=== PATIENT | male | born 1940 | race Caucasian/White ===

== ENCOUNTER → 2017-10-05 08:29 | Outpatient (CLI) | payer MEDICARE, OTHER, SELFPAY ==
[2017-10-05 09:27] LABS: BUN Creatinine Ratio 18.8 (6-22); Blood Urea Nitrogen 15 mg/dL (9-20); Calcium 8.8 mg/dL (8.4-10.2); Carbon Dioxide 27 mmol/L (22-32); Chloride 102 mmol/L (98-107); Cholesterol 115 mg/dL (140-199); Estimated Glomerular Filt Rate > 60.0 mL/min (>60); Glucose 98 mg/dL (80-110); HDL Cholesterol 36 mg/dL (40-60); HEMOLYSIS < 15 (0-50); LDL Cholesterol Calculated 52 mg/dL (<100); Potassium 4.2 mmol/L (3.4-5.1); Sodium 141 mmol/L (137-145); Triglycerides 133 mg/dL (35-150)
== END ==
PROVIDERS: PCP Family Medicine; Visit Provider Internal Medicine Interventional Cardiology
DX: I10 Essential (primary) hypertension (principal); E78.5 Hyperlipidemia, unspecified
CPT/HCPCS: 36415; 80048; 80061

== ENCOUNTER → 2017-10-25 08:29 | Outpatient (CLI) | payer MEDICARE, OTHER, SELFPAY ==
[2017-10-25 09:33] LABS: INR 4.1 (0.9-1.3); Prothrombin Time 44.1 SECONDS (10.1-12.7)
== END ==
PROVIDERS: PCP Family Medicine; Visit Provider Family Medicine
DX: I48.0 Paroxysmal atrial fibrillation (principal)
CPT/HCPCS: 36415; 85610

== ENCOUNTER → 2017-10-28 08:40 | Outpatient (CLI) | payer MEDICARE, OTHER, SELFPAY ==
[2017-10-28 09:33] LABS: INR 2.2 (0.9-1.3); Prothrombin Time 23.8 SECONDS (10.1-12.7)
== END ==
PROVIDERS: PCP Family Medicine; Visit Provider Family Medicine
DX: I48.0 Paroxysmal atrial fibrillation (principal)
CPT/HCPCS: 36415; 85610

== ENCOUNTER → 2017-12-15 10:03 | Outpatient (CLI) | payer MEDICARE, OTHER, SELFPAY ==
[2017-12-15 11:12] LABS: INR 2.1 (0.9-1.3); Prothrombin Time 23.1 SECONDS (10.1-12.7)
== END ==
PROVIDERS: PCP Family Medicine; Visit Provider Family Medicine
DX: I48.0 Paroxysmal atrial fibrillation (principal)
CPT/HCPCS: 36415; 85610

== ENCOUNTER → 2018-01-13 08:11 | Outpatient (CLI) | payer MEDICARE, OTHER, SELFPAY ==
[2018-01-13 08:39] LABS: INR 1.7 (0.9-1.3); Prothrombin Time 18.1 SECONDS (10.1-12.7)
== END ==
PROVIDERS: PCP Family Medicine; Visit Provider Family Medicine
DX: I48.0 Paroxysmal atrial fibrillation (principal)
CPT/HCPCS: 36415; 85610

== ENCOUNTER → 2018-03-16 08:43 | Outpatient (CLI) | payer MEDICARE, OTHER, SELFPAY ==
[2018-03-16 10:30] LABS: Prothrombin Time 21.6 SECONDS (10.1-12.7)
== END ==
PROVIDERS: PCP Family Medicine; Visit Provider Family Medicine
DX: I48.0 Paroxysmal atrial fibrillation (principal)
CPT/HCPCS: 36415; 85610

== ENCOUNTER → 2018-04-21 08:52 | Outpatient (CLI) | payer MEDICARE, OTHER, SELFPAY ==
[2018-04-21 10:11] LABS: INR 2.9 (0.9-1.3); Prothrombin Time 34.6 SECONDS (10.1-12.7)
== END ==
PROVIDERS: PCP Family Medicine; Visit Provider Family Medicine
DX: I48.0 Paroxysmal atrial fibrillation (principal)
CPT/HCPCS: 36415; 85610

== ENCOUNTER → 2018-05-22 10:04 | Outpatient (CLI) | payer MEDICARE, OTHER, SELFPAY ==
[2018-05-22 10:57] LABS: INR 2.4 (0.9-1.3)
== END ==
PROVIDERS: PCP Family Medicine; Visit Provider Family Medicine
DX: I48.0 Paroxysmal atrial fibrillation (principal)
CPT/HCPCS: 36415; 85610

== ENCOUNTER → 2018-06-27 08:21 | Outpatient (CLI) | payer MEDICARE, OTHER, SELFPAY ==
[2018-06-27 09:31] LABS: INR 1.9 (0.9-1.3); Prothrombin Time 22.6 SECONDS (10.1-12.7)
== END ==
PROVIDERS: PCP Family Medicine; Visit Provider Family Medicine
DX: I48.0 Paroxysmal atrial fibrillation (principal)
CPT/HCPCS: 36415; 85610

== ENCOUNTER → 2018-07-19 07:50 | Outpatient (CLI) | payer MEDICARE, OTHER, SELFPAY ==
[2018-07-19 08:48] LABS: INR 2.8 (0.9-1.3); Prothrombin Time 32.6 SECONDS (10.1-12.7)
[2018-07-19 08:52] LABS: Add Manual Diff / Slide Review NO; Basophils Absolute Auto 0 /uL (0-100); Basophils Percent Auto 0.7 % (0-2); Eosinophils Absolute Auto 300 /uL (0-450); Eosinophils Percent Auto 5.4 % (2-4); Hematocrit 46.9 % (41-53); Lymphocytes Absolute Auto 1300 /uL (1100-4500); Lymphocytes Percent Auto 21.8 % (25-40); Mean Corpuscular HGB Conc 34.1 % (30-36); Mean Corpuscular Hemoglobin 32.2 PG (26-34); Mean Corpuscular Volume 94.3 fL (80-100); Monocytes Absolute Auto 500 /uL (0-900); Monocytes Percent Auto 8.2 % (3-14); Neutrophils Absolute Auto 3900 /uL (1500-7000); Neutrophils Percent Auto 63.9 % (50-75); Platelet Count 145 X10^3/uL (150-400); Red Blood Cell Count 4.97 X10^6/uL (4.5-5.9); Red Cell Distribution Width 13.3 % (11.6-14.8)
[2018-07-19 09:17] LABS: Alanine Aminotransferase 25 IU/L (21-72); Albumin Globulin Ratio 1.7 (1.0-2.8); Alkaline Phosphatase 78 U/L (38-126); Aspartate Aminotransferase 19 IU/L (17-59); BUN Creatinine Ratio 21.1 (6-22); Bilirubin Total 0.8 mg/dL (0.2-1.3); Blood Urea Nitrogen 19 mg/dL (9-20); Calcium 8.6 mg/dL (8.4-10.2); Carbon Dioxide 26 mmol/L (22-32); Chloride 105 mmol/L (98-107); Cholesterol 119 mg/dL (140-199); Estimated Glomerular Filt Rate > 60.0 mL/min (>60); Globulin 2.4 g/dL (1.7-4.1); Glucose 97 mg/dL (80-110); HDL Cholesterol 36 mg/dL (40-60); HEMOLYSIS < 15 (0-50); LDL Cholesterol Calculated 53 mg/dL (<100); Potassium 4.1 mmol/L (3.4-5.1); Sodium 141 mmol/L (137-145); Total Protein 6.4 g/dL (6.3-8.2); Triglycerides 149 mg/dL (35-150)
[2018-07-19 09:50] LABS: Prostate Specific Antigen Scrn < 0.064 ng/mL (0.1-4.0)
== END ==
PROVIDERS: PCP Family Medicine; Visit Provider Family Medicine
DX: I48.0 Paroxysmal atrial fibrillation (principal); I25.10 Atherosclerotic heart disease of native coronary artery without angina pectoris; E78.5 Hyperlipidemia, unspecified; C61 Malignant neoplasm of prostate; F52.21 Male erectile disorder; Z79.899 Other long term (current) drug therapy
CPT/HCPCS: 36415; 80053; 80061; 85025; 85610; G0103

== ENCOUNTER → 2018-08-31 08:59 | Outpatient (CLI) | payer MEDICARE, OTHER, SELFPAY ==
[2018-08-31 10:26] LABS: INR 3.3 (0.9-1.3); Prothrombin Time 39.7 SECONDS (10.1-12.7)
== END ==
PROVIDERS: PCP Family Medicine; Visit Provider Family Medicine
DX: I48.0 Paroxysmal atrial fibrillation (principal)
CPT/HCPCS: 36415; 85610

== ENCOUNTER → 2018-10-27 08:29 | Outpatient (CLI) | payer MEDICARE, OTHER, SELFPAY ==
[2018-10-27 09:46] LABS: INR 2.5 (0.9-1.3); Prothrombin Time 29.6 SECONDS (10.1-12.7)
== END ==
PROVIDERS: PCP Family Medicine; Visit Provider Family Medicine
DX: I48.0 Paroxysmal atrial fibrillation (principal)
CPT/HCPCS: 36415; 85610

== ENCOUNTER → 2018-11-27 08:58 | Outpatient (CLI) | payer MEDICARE, OTHER, SELFPAY ==
[2018-11-27 09:48] LABS: INR 3.1 (0.9-1.3); Prothrombin Time 36.1 SECONDS (10.1-12.7)
== END ==
PROVIDERS: PCP Family Medicine; Visit Provider Family Medicine
DX: I48.0 Paroxysmal atrial fibrillation (principal)
CPT/HCPCS: 36415; 85610

== ENCOUNTER → 2018-12-20 10:32 | Outpatient (CLI) | payer MEDICARE, OTHER, SELFPAY ==
[2018-12-20 11:42] LABS: INR 2.5 (0.9-1.3); Prothrombin Time 29.4 SECONDS (10.1-12.7)
== END ==
PROVIDERS: PCP Family Medicine; Visit Provider Family Medicine
DX: I48.0 Paroxysmal atrial fibrillation (principal)
CPT/HCPCS: 36415; 85610

== ENCOUNTER → 2019-01-04 07:47 | Outpatient (CLI) | payer MEDICARE, OTHER, SELFPAY ==
[2019-01-04 09:38] LABS: INR 3.2 (0.9-1.3); Prothrombin Time 37.4 SECONDS (10.1-12.7)
== END ==
PROVIDERS: PCP Family Medicine; Visit Provider Family Medicine
DX: I48.0 Paroxysmal atrial fibrillation (principal)
CPT/HCPCS: 36415; 85610

== ENCOUNTER → 2019-02-12 08:43 | Outpatient (CLI) | payer MEDICARE, OTHER, SELFPAY ==
[2019-02-12 09:25] LABS: INR 2.4 (0.9-1.3); Prothrombin Time 28.1 SECONDS (10.1-12.7)
== END ==
PROVIDERS: PCP Family Medicine; Visit Provider Family Medicine
DX: I48.0 Paroxysmal atrial fibrillation (principal)
CPT/HCPCS: 36415; 85610

== ENCOUNTER → 2019-03-23 08:13 | Outpatient (CLI) | payer MEDICARE, OTHER, SELFPAY ==
[2019-03-23 09:12] LABS: INR 1.6 (0.9-1.3); Prothrombin Time 18.5 SECONDS (10.1-12.7)
== END ==
PROVIDERS: PCP Family Medicine; Visit Provider Family Medicine
DX: I48.0 Paroxysmal atrial fibrillation (principal)
CPT/HCPCS: 36415; 85610

== ENCOUNTER → 2019-04-11 08:58 | Outpatient (CLI) | payer MEDICARE, OTHER, SELFPAY ==
[2019-04-11 10:45] LABS: INR 2.4 (0.9-1.3); Prothrombin Time 28.6 SECONDS (10.1-12.7)
== END ==
PROVIDERS: PCP Family Medicine; Visit Provider Family Medicine
DX: I48.0 Paroxysmal atrial fibrillation (principal)
CPT/HCPCS: 36415; 85610

== ENCOUNTER → 2019-05-24 09:34 | Outpatient (CLI) | payer MEDICARE, OTHER, SELFPAY ==
[2019-05-24 10:09] LABS: INR 2.8 (0.9-1.3); Prothrombin Time 32.6 SECONDS (10.1-12.7)
== END ==
PROVIDERS: PCP Family Medicine; Visit Provider Family Medicine
DX: I48.0 Paroxysmal atrial fibrillation (principal)
CPT/HCPCS: 36415; 85610

== ENCOUNTER 2019-06-07 06:22 | Day surgery (SDC) | payer MEDICARE, OTHER, SELFPAY ==
[2019-06-07] MEDS: PROPARACAINE 0.5% OPHTH SOL 2 DROPS EYE-OP (07:07)
[2019-06-07] MEDS: CATARACT EYE COMPOUND (10 DROPS/SYRINGE) 3 DROPS EYE-OP (07:12)
[2019-06-07 07:14] VITALS: BMI 28.7
[2019-06-07 07:25] VITALS: BP 148/90; PULSE 60; RESP 16; TEMP 36.6; O2SAT 93
--- NOTE | 2019-06-07 07:29 | PM.PREOP ---
Pre-operative Note Interval Note History & Physical reviewed/Exam performed by Physician: Yes Changes to H&P: No
[2019-06-07] MEDS: BALANCED SALT IRRIG SOLN NO.2 15 ML 5 ML IRR (07:45)
[2019-06-07] MEDS: CHONDROIDTIN/SOD HYALURONATE 1.05 ML SYRINGE INTRAOCULA (07:51)
[2019-06-07] MEDS: TETRACAINE 0.5% OPHTH DROPS 4 ML 2 DROPS EYE-OP (07:51)
[2019-06-07] MEDS: PHENYLEPHRINE/LIDOCAINE VIAL (OR) 0.2 ML EYE-OP (07:52)
[2019-06-07] MEDS: BALANCED SALT IRRIG SOLN NO.2 500 ML, EPINEPHrine 1 MG IRR (07:52)
[2019-06-07] MEDS: MOXIFLOXACIN INJ 5 MG/ML VIAL EYE-OP (07:53)
[2019-06-07] MEDS: LIDOCAINE 2% INJ SDV 2 ML INJ (07:53)
--- NOTE | 2019-06-07 08:17 | PM.OP.1 ---
Procedure & Clinicians Procedure: Cataract extraction with intraocular lens implant, right. Same procedure as scheduled: Yes Indications: Age related visually significant nuclear sclerosis, right Surgeon: Azeem Chavez Click Yes if Unassisted: Yes Anesthesia Type: MAC +/- Operative Notes Procedure in detail: The patient was brought to the operating suite. The correct patient, surgical site and lens were confirmed. 0.5 % tetracaine drops were placed in the right eye. The patient was prepped and draped in the typical sterile manner. A lid speculum was placed in the eye. 2% lidocaine was placed on the eye. A paracentesis port was created with a side-port blade. 0.1 mL of 1% preservative free lidocaine with phenylephrine was injected into the anterior chamber. Viscoelastic was injected into the anterior chamber. A 2.6mm keratome was used to create a clear corneal temporal incision. Cystotome and Utrata forceps were used to create a continuous curvilinear capsulorrhexis. Balanced salt solution was used to hydrodissect the nucleus. Phacoemulsification was used to remove the lens. During Phacoemulsification the superior conjunctiva began to balloon. A second paracentesis port was created one clock hour left of the original paracentesis. The capsular bag was inflated with viscoelastic. A Pal[place]ios ZCBOO +23.0D lens was inserted into the capsule. Viscoelastic was removed and the wounds hydrated, and the main wound was sealed with ReSure glue. The wound was found to be leak free and the eye was assessed to be at normal physiologic pressure. 0.1mL Moxifloxacin (5mg/mL) preservative free was injected into the anterior chamber. The lid speculum was removed and the patient left the operating room in excellent condition. Complications: none Post-operative Condition: stable Disposition: same day surgery
[2019-06-07 08:25] VITALS: BP 130/81; PULSE 60; RESP 16; TEMP 36.6; O2SAT 93
== END 2019-06-07 08:30 | disposition home or self-care (01) ==
LOC: OR 06:24
PROVIDERS: PCP Family Medicine; Referring Provider Ophthalmology; Visit Provider Ophthalmology
PROC: (CPT 66984; principal; 2019-06-07 07:45)
DX: H25.11 Age-related nuclear cataract, right eye (principal); H35.3112 Nonexudative age-related macular degeneration, right eye, intermediate dry stage
CPT/HCPCS: 66984; J0171; J2250; J3010

== ENCOUNTER → 2019-06-19 08:50 | Outpatient (CLI) | payer MEDICARE, OTHER, SELFPAY ==
[2019-06-19 09:41] LABS: INR 1.8 (0.9-1.3); Prothrombin Time 20.2 SECONDS (10.1-12.7)
== END ==
PROVIDERS: PCP Family Medicine; Referring Provider Family Medicine; Visit Provider Family Medicine
DX: I48.0 Paroxysmal atrial fibrillation (principal)
CPT/HCPCS: 36415; 85610

== ENCOUNTER 2019-06-21 06:53 | Day surgery (SDC) | payer MEDICARE, OTHER, SELFPAY ==
[2019-06-21] MEDS: CATARACT EYE COMPOUND (10 DROPS/SYRINGE) 3 DROPS EYE-OP (07:54)
[2019-06-21] MEDS: PROPARACAINE 0.5% OPHTH SOL 2 DROPS EYE-OP (07:54)
[2019-06-21 07:57] VITALS: BP 154/82; PULSE 60; RESP 17; TEMP 36.5; O2SAT 97; BMI 29.0
--- NOTE | 2019-06-21 08:21 | PM.PREOP ---
Pre-operative Note Interval Note History & Physical reviewed/Exam performed by Physician: Yes Changes to H&P: No
[2019-06-21] MEDS: LIDOCAINE 2% INJ SDV 2 ML INJ (08:48)
[2019-06-21] MEDS: MOXIFLOXACIN INJ 5 MG/ML VIAL EYE-OP (08:48)
[2019-06-21] MEDS: BALANCED SALT IRRIG SOLN NO.2 500 ML, EPINEPHrine 1 MG IRR (08:49)
[2019-06-21] MEDS: TETRACAINE 0.5% OPHTH DROPS 4 ML 2 DROPS EYE-OP (08:49)
[2019-06-21] MEDS: CHONDROIDTIN/SOD HYALURONATE 1.05 ML SYRINGE INTRAOCULA (08:49)
[2019-06-21] MEDS: PHENYLEPHRINE/LIDOCAINE VIAL (OR) 0.2 ML EYE-OP (08:49)
[2019-06-21] MEDS: BALANCED SALT IRRIG SOLN NO.2 15 ML 5 ML IRR (08:50)
--- NOTE | 2019-06-21 09:10 | P.OP_ITS ---
Procedure & Clinicians Procedure: Cataract extraction with intraocular lens implant, left. Same procedure as scheduled: Yes Indications: Visually significant age related nuclear sclerosis, left Surgeon: Azeem Chavez Click Yes if Unassisted: Yes Anesthesia Type: MAC +/- Operative Notes Procedure in detail: The patient was brought to the operating suite. The correct patient, surgical site and lens were confirmed. 0.5 % tetracaine drops were placed in the left eye. The patient was prepped and draped in the typical kasey rile manner. A lid speculum was placed in the eye. 2% lidocaine was placed on the eye. A paracentesis port was created with a side-port blade. 0.1 mL of 1% preservative free lidocaine with phenylephrine was injected into the anterior chamber. Viscoelastic was injected into the anterior chamber. A 2.6mm keratome was used to create a clear corneal temporal incision. Cystotome and Utrata forceps were used to create a continuous curvilinear capsulorrhexis. Balanced salt solution was used to hydrodissect the nucleus. Phacoemulsification was used to remove the lens. The capsular bag was inflated with viscoelastic. A Palacios ZCBOO +22.5D lens was inserted into the capsule. Viscoelastic was removed and the wound hydrated. The wound was found to be leak free and the eye was assessed to be at normal physiologic pressure. 0.1mL Moxifloxacin (5mg/mL) preservative free was injected into the anterior chamber. The lid speculum was removed and the patient left the operating room in excellent condition. Complications: none Post-operative Condition: stable Disposition: same day surgery
[2019-06-21 09:16] VITALS: BP 125/81; PULSE 60; RESP 18; TEMP 36.4; O2SAT 94
[2019-06-21 09:30] VITALS: BP 125/81; BP 127/81; PULSE 59; PULSE 60; RESP 16; RESP 18; TEMP 36.4; O2SAT 93; O2SAT 94
== END 2019-06-21 09:30 | disposition home or self-care (01) ==
LOC: OR 06:54
PROVIDERS: PCP Family Medicine; Referring Provider Ophthalmology; Visit Provider Ophthalmology
PROC: (CPT 66984; principal; 2019-06-21 08:15)
DX: H25.12 Age-related nuclear cataract, left eye (principal)
CPT/HCPCS: 66984; J0171; J2250; J3010

== ENCOUNTER → 2019-07-18 12:28 | Outpatient (CLI) | payer MEDICARE, OTHER, SELFPAY ==
[2019-07-18 13:57] LABS: INR 1.9 (0.9-1.3); Prothrombin Time 21.6 SECONDS (10.1-12.7)
== END ==
PROVIDERS: PCP Family Medicine; Referring Provider Family Medicine; Visit Provider Family Medicine
DX: I48.0 Paroxysmal atrial fibrillation (principal)
CPT/HCPCS: 36415; 85610

== ENCOUNTER → 2019-08-10 12:18 | Outpatient (CLI) | payer MEDICARE, OTHER, SELFPAY ==
[2019-08-10 12:49] LABS: Prothrombin Time 23.3 SECONDS (10.1-12.7)
== END ==
PROVIDERS: PCP Family Medicine; Referring Provider Family Medicine; Visit Provider Family Medicine
DX: I48.0 Paroxysmal atrial fibrillation (principal)
CPT/HCPCS: 36415; 85610

== ENCOUNTER → 2019-09-07 09:02 | Outpatient (CLI) | payer MEDICARE, OTHER, SELFPAY ==
[2019-09-07 11:28] LABS: INR 3.7 (0.9-1.3); Prothrombin Time 42.3 SECONDS (10.1-12.7)
== END ==
PROVIDERS: PCP Family Medicine; Referring Provider Family Medicine; Visit Provider Family Medicine
DX: I48.0 Paroxysmal atrial fibrillation (principal)
CPT/HCPCS: 36415; 85610

== ENCOUNTER → 2019-10-11 08:23 | Outpatient (CLI) | payer MEDICARE, OTHER, SELFPAY ==
[2019-10-11 09:22] LABS: INR 2.3 (0.9-1.3); Prothrombin Time 26.4 SECONDS (10.1-12.7)
== END ==
PROVIDERS: PCP Family Medicine; Referring Provider Family Medicine; Visit Provider Family Medicine
DX: I48.0 Paroxysmal atrial fibrillation (principal)
CPT/HCPCS: 36415; 85610

== ENCOUNTER → 2019-10-31 09:18 | Outpatient (CLI) | payer MEDICARE, OTHER, SELFPAY ==
[2019-10-31 11:19] LABS: INR 2.4 (0.9-1.3)
== END ==
PROVIDERS: PCP Family Medicine; Referring Provider Family Medicine; Visit Provider Family Medicine
DX: I48.0 Paroxysmal atrial fibrillation (principal)
CPT/HCPCS: 36415; 85610

== ENCOUNTER → 2019-11-06 08:52 | Outpatient (CLI) | payer MEDICARE, OTHER, SELFPAY ==
[2019-11-06 09:48] LABS: Alanine Aminotransferase 16 IU/L (<50); BUN Creatinine Ratio 22.7 (6-22); Blood Urea Nitrogen 20 mg/dL (9-20); Calcium 9.3 mg/dL (8.4-10.2); Carbon Dioxide 24 mmol/L (22-32); Chloride 106 mmol/L (98-107); Cholesterol 113 mg/dL (140-199); Estimated Glomerular Filt Rate > 60.0 mL/min (>60); Glucose 103 mg/dL (80-110); HDL Cholesterol 34 mg/dL (40-60); HEMOLYSIS < 15 (0-50); LDL Cholesterol Calculated 52 mg/dL (<100); Potassium 4.2 mmol/L (3.4-5.1); Sodium 138 mmol/L (137-145); Triglycerides 137 mg/dL (35-150)
== END ==
PROVIDERS: PCP Family Medicine; Referring Provider Internal Medicine Interventional Cardiology; Visit Provider Internal Medicine Interventional Cardiology
DX: I25.2 Old myocardial infarction (principal)
CPT/HCPCS: 36415; 80048; 80061; 84460

== ENCOUNTER → 2020-01-21 08:05 | Outpatient (CLI) | payer MEDICARE, OTHER, SELFPAY ==
[2020-01-21 08:50] LABS: INR 2.6 (0.9-1.3); Prothrombin Time 29.9 SECONDS (10.1-12.7)
== END ==
PROVIDERS: PCP Family Medicine; Referring Provider Family Medicine; Visit Provider Family Medicine
DX: I48.0 Paroxysmal atrial fibrillation (principal)
CPT/HCPCS: 36415; 85610

== ENCOUNTER → 2020-02-27 16:03 | Outpatient (CLI) | payer MEDICARE, OTHER, SELFPAY ==
--- NOTE | 2020-02-27 | DI.RAD.S_ITS ---
PROCEDURE: XR WRIST LT MIN 3V INDICATIONS: M25. 532 TECHNIQUE: Four views of the wrist were acquired. COMPARISON: None. FINDINGS: Bones: Four views of the left wrist were performed and demonstrate degenerative changes with joint space narrowing and subchondral sclerosis of the triscaphe joint and the 1st carpometacarpal joint. Calcifications are seen in the triangular fibrocartilage consistent with chondrocalcinosis. No fracture or dislocation. Soft tissues: No suspicious soft tissue calcifications. IMPRESSION: 1. Degenerative changes of the triscaphe joint and 1st carpometacarpal joint consistent with osteoarthritis. 2. Chondrocalcinosis. Dictated by: Felix Gonzales M.D. on 02/27/2020 at 17:32 Approved by: Felix Gonzales M.D. on 02/27/2020 at 17:35
== END ==
PROVIDERS: PCP Family Medicine; Referring Provider Family Medicine; Visit Provider Family Medicine
DX: M25.532 Pain in left wrist (principal); M11.232 Other chondrocalcinosis, left wrist
CPT/HCPCS: 73110

== ENCOUNTER → 2020-02-29 08:34 | Outpatient (CLI) | payer MEDICARE, OTHER, SELFPAY ==
[2020-02-29 10:00] LABS: INR 2.8 (0.9-1.3); Prothrombin Time 31.9 SECONDS (10.1-12.7)
== END ==
PROVIDERS: PCP Family Medicine; Referring Provider Family Medicine; Visit Provider Family Medicine
DX: I48.0 Paroxysmal atrial fibrillation (principal)
CPT/HCPCS: 36415; 85610

== ENCOUNTER → 2020-03-25 07:22 | Outpatient (CLI) | payer MEDICARE, OTHER, SELFPAY ==
[2020-03-25 07:43] LABS: INR 2.5 (0.9-1.3); Prothrombin Time 28.7 SECONDS (10.1-12.7)
== END ==
PROVIDERS: PCP Family Medicine; Referring Provider Family Medicine; Visit Provider Family Medicine
DX: I48.0 Paroxysmal atrial fibrillation (principal)
CPT/HCPCS: 36415; 85610

== ENCOUNTER → 2020-04-21 08:16 | Outpatient (CLI) | payer MEDICARE, OTHER, SELFPAY ==
[2020-04-21 09:31] LABS: INR 2.3 (0.9-1.3); Prothrombin Time 26.8 SECONDS (10.1-12.7)
== END ==
PROVIDERS: PCP Family Medicine; Referring Provider Family Medicine; Visit Provider Family Medicine
DX: I48.0 Paroxysmal atrial fibrillation (principal)
CPT/HCPCS: 36415; 85610

== ENCOUNTER → 2020-05-10 10:19 | Outpatient (CLI) | payer MEDICARE, OTHER, SELFPAY ==
[2020-05-10 11:06] LABS: COVID19 -Nasal RAPID Negative (Negative)
== END ==
PROVIDERS: PCP Family Medicine; Visit Provider Nurse Practitioner
DX: Z01.812 Encounter for preprocedural laboratory examination (principal); Z20.822 Contact with and (suspected) exposure to COVID-19
CPT/HCPCS: 87635; C9803

== ENCOUNTER 2020-05-13 08:51 | Day surgery (SDC) | payer MEDICARE, OTHER, SELFPAY ==
[2020-05-13 10:22] VITALS: BP 125/80; PULSE 60; RESP 16; TEMP 36; O2SAT 95; BMI 27.9
--- NOTE | 2020-05-13 10:29 | P.OP_ITS ---
Operative Date/Time/Diagnoses Date of procedure: 05/13/20 Pre-op diagnosis: Dermatochalasis both upper eyelids Post-op diagnosis: same Procedure & Clinicians Procedure: Blepharoplasty both upper lids Same procedure as scheduled: Yes Surgeon: Mingo Steiner Anesthesia Type: MAC +/- Operative Notes Blood products transfused: none Procedure in detail: The patient was brought to the operating suite. A marking pen and calipers was used to kelly the excess upper lid skin of both eyes. The patient underwent intravenous sedation. A mixture of lidocaine with epinephrine, bupivicane and hyaluronidase was preppared. 5 ml of this mixture was injected into the upper lids of both eyes. The patient was preppred and draped in sterile manor. The excess skin and orbicularis mucscle was removed from the right upper lid. The orbital septum was excised and the prolapsed orbi tam fat was excised. There was minimal bleeding. The incision was closed with 6-0 vicryl suture. The same proceedure was performed on the left upper lid. Maxitrol ointment was placed on the incisions. The patient left the operating suite in excellent condition. Complications: none Post-operative Condition: stable Disposition: PACU
--- NOTE | 2020-05-13 10:29 | PM.PREOP ---
Pre-operative Note Interval Note History & Physical reviewed/Exam performed by Physician: Yes Changes to H&P: No
[2020-05-13] MEDS: LACTATED RINGERS 1,000 ML 42 ML IV (10:34)
[2020-05-13] MEDS: BUPIVACAINE 0.5% (PF) 5 ML, LIDOCAINE 1% W/EPI 5 ML, HYALURONIDASE 150 UNIT INJ (11:04)
[2020-05-13] MEDS: NEOMYCIN/POLY/DEX OPHTH OINT 1 APPLIC EYE-BOTH (11:04)
[2020-05-13 11:35] VITALS: BP 122/75; PULSE 60; RESP 16; TEMP 36; O2SAT 95
--- NOTE | 2020-05-13 12:01 | SUR.PHASEII ---
Pt met discharge criteria: VSS, denied any pain or nausea, able to drink fluids without difficulty. Slight oozing of blood from bilateral wounds. Discharge instructions discussed, all questions answered. Pt given ointment to take home for application to wounds per physician instructions. Transported via W/C to private vehicle.
== END 2020-05-13 11:52 | disposition home or self-care (01) ==
PROVIDERS: PCP Family Medicine; Referring Provider Ophthalmology; Visit Provider Ophthalmology
PROC: (CPT 15823; principal; 2020-05-13 10:45)
DX: H02.831 Dermatochalasis of right upper eyelid (principal); H02.834 Dermatochalasis of left upper eyelid; Z95.0 Presence of cardiac pacemaker; I48.91 Unspecified atrial fibrillation; I25.10 Atherosclerotic heart disease of native coronary artery without angina pectoris; I10 Essential (primary) hypertension; J44.9 Chronic obstructive pulmonary disease, unspecified; I25.2 Old myocardial infarction
CPT/HCPCS: 15823; J2704; J3470

== ENCOUNTER → 2020-06-11 09:00 | Outpatient (CLI) | payer MEDICARE, OTHER, SELFPAY ==
[2020-06-11 10:02] LABS: INR 2.6 (0.9-1.3); Prothrombin Time 29.3 SECONDS (10.1-12.7)
== END ==
PROVIDERS: PCP Family Medicine; Referring Provider Family Medicine; Visit Provider Family Medicine
DX: I48.0 Paroxysmal atrial fibrillation (principal)
CPT/HCPCS: 36415; 85610

== ENCOUNTER → 2020-06-25 08:47 | Outpatient (CLI) | payer MEDICARE, OTHER, SELFPAY ==
[2020-06-25 09:57] LABS: INR 2.6 (0.9-1.3); Prothrombin Time 29.9 SECONDS (10.1-12.7)
== END ==
PROVIDERS: PCP Family Medicine; Referring Provider Family Medicine; Visit Provider Family Medicine
DX: I48.0 Paroxysmal atrial fibrillation (principal)
CPT/HCPCS: 36415; 85610

== ENCOUNTER → 2020-07-25 08:02 | Outpatient (CLI) | payer MEDICARE, OTHER, SELFPAY ==
[2020-07-25 09:41] LABS: INR 2.5 (0.9-1.3); Prothrombin Time 27.9 SECONDS (10.1-12.7)
== END ==
PROVIDERS: PCP Family Medicine; Referring Provider Family Medicine; Visit Provider Family Medicine
DX: I48.0 Paroxysmal atrial fibrillation (principal)
CPT/HCPCS: 36415; 85610

== ENCOUNTER → 2020-08-07 09:33 | Outpatient (CLI) | payer MEDICARE, OTHER, SELFPAY ==
[2020-08-07 10:33] LABS: COVID19 -Nasal RAPID Negative (Negative)
== END ==
PROVIDERS: PCP Family Medicine; Visit Provider Specialist
DX: Z20.822 Contact with and (suspected) exposure to COVID-19 (principal)
CPT/HCPCS: 87635; C9803

== ENCOUNTER 2020-08-08 09:38 | Day surgery (SDC) | payer MEDICARE, OTHER, SELFPAY ==
--- NOTE | 2020-08-08 | PATH_ITS ---
[facility] Accession Number: [id number] . 01 Material submitted: . PART A: colon - COLON POLYP @40CM PART B: colon - ASCENDING COLON POLYP X3 PART C: colon - COLON POLYP @20CM X5 . 02 Diagnosis: A. Colon, Polyp at 40 cm, Biopsy: Tubular adenoma. . B. Ascending Colon, Polyp x3, Biopsy: Fragments of tubular adenoma and sessile serrated adenoma. . C. Colon, Polyp at 20 cm x5, Biopsies: Hyperplastic polyps. [facility] 08/12/2020 1538 Local . 02 Electronically signed: . Judy Ortega MD, Pathologist NPI- [id number] . 01 Gross description: . A. Received in formalin, labeled colon polyp at 40 cm biopsy, are multiple fragments of smith, soft tissue and possible debris measuring 1.5 x 0.4 x 0.3 cm in aggregate. One larger piece of tissue is observed measuring 0.5 x 0.3 x 0.4 cm. The aggregate material is entirely submitted in cassette A1. The larger piece of tissue is inked, trisected, and entirely submitted in cassette A2. B. Received in formalin, labeled ascending colon polyp, are three fragments of smith, soft tissue measuring 0.7 x 0.3 x 0.1 cm to 0.4 x 0.2 x 0.2 cm. All three fragments are entirely submitted in cassette B1. C. Received in formalin, labeled colon biopsy at 20 cm, are multiple fragments of smith, soft tissue measuring 1.1 x 0.8 x 0.3 cm in aggregate. All tissue is entirely submitted in cassette C1. ([id number]) /[facility] 08/09/2020 1415 Local . 02 Pathologist provided ICD-10: D12.2, D12.6 . 02 CPT . 569626, 557307, [id number] Performed at: 01 [facility] [address] [id number] MD Luis Means MD Phone: [phone] Performed at: 02 [facility] [address] [place], [place] [id number] MD Judy Ortega MD Phone: [phone]
[2020-08-08 10:07] VITALS: BP 140/90; PULSE 75; RESP 16; TEMP 36.2; O2SAT 93; BMI 26.8
[2020-08-08] MEDS: LACTATED RINGERS 1,000 ML 200 ML IV (10:07)
--- NOTE | 2020-08-08 10:31 | PM.PREOP ---
Pre-operative Note COVID-19 COVID-19 status: Negative Result date/Date tested (Pos, Neg/Pending): 08/07/20 Interval Note History & Physical reviewed/Exam performed by Physician: Yes Changes to H&P: No ASA Class (for procedural sedation): III
[2020-08-08] MEDS: MIDAZOLAM 5 MG/5 ML VIAL IV (10:36)
[2020-08-08] MEDS: fentaNYL 250 MCG/5 ML INJ IV (10:36)
[2020-08-08 11:19] VITALS: BMI 26.8
--- NOTE | 2020-08-08 11:23 | PM.OP.ENDO ---
Operative Date/Time/Diagnoses Date of procedure: 08/08/20 Time of procedure: 11:23 Pre-op diagnosis: Positive Cologuard test Post-op diagnosis: same (Multiple polyps. Diverticulosis.) Procedure & Clinicians Study performed: Colonoscopy with hot snare polypectomy and cold biopsy. Same procedure as scheduled: Yes Indications: Positive Cologuard test. Last exam over 10 years ago. Personal history of polyps. Surgeon: Chucho Warren Procedure Notes SCOAP/Timeout: Performed Procedure in detail: The patient was placed in the left lateral decubitus position and underwent IV sedation directed by the surgeon consisting of fentanyl and Versed. Digital exam was remarkable for an absent prostate. Patient had a tag it his anus.. The scope was inserted and advanced through the rectum into the sigmoid, descending, transverse, and ascending colon. Patient was noted to have some tortuosity in the sigmoid and diverticulosis. There was a lesion seen on the way in which was biopsied to marked so they could be snared on the way out.(this lesion on the way out measured at 40 cm from the anal verge). The cecum was reached identified by the ileocecal valve and the appendiceal opening. The ileocecal valve was unremarkable in appearance. There were 2 polyps in the ascending colon just beyond the cecum and these were snared with a hot snare. One had some small areas remaining which I cauterized and they were completely destroyed. The scope was gradually brought out. Additional Polyps were found at 40 cm from the anal verge and in the rectal area at about 15-20 cm there were multiple small lesions which were biopsied. Some of these may not be neoplastic. The region of the sigmoid was actually difficult to see because the patient did not hold air well well oil was in that area and so it was difficult to adequately distend it. The scope ultimately was retroflexed in the rectum. The appearance was normal. The scope was removed and the patient tolerated the procedure well. The prep was good. Scope withdrawal time: 10 minutes(23 total) Sedation minutes: 45 Findings: diverticulosis (Sigmoid colon) and polyp (Multiple) Specimen(s): other (Polyps) Complications: none Post-procedure Recommendations: Other recommendation (Colonoscopy in 3-5 years.) Follow up: as needed Disposition: PACU
[2020-08-08 11:26] VITALS: BP 126/78; PULSE 60; RESP 14; TEMP 37.1; O2SAT 92
[2020-08-08 11:30] VITALS: BP 119/70; PULSE 57; RESP 13; O2SAT 96
[2020-08-08 11:35] VITALS: BP 119/70; PULSE 57; RESP 12; O2SAT 93
[2020-08-08 11:39] VITALS: BP 128/71; PULSE 60; RESP 14; TEMP 36.7; O2SAT 96
== END 2020-08-08 12:11 | disposition home or self-care (01) ==
PROVIDERS: PCP Family Medicine; Referring Provider Specialist; Visit Provider Specialist
PROC: 0DJD8ZZ Inspection of Lower Intestinal Tract, Via Natural or Artificial Opening Endoscopic (ICD-10-PCS; CPT 45378; principal; 2020-08-08 10:45)
DX: R19.5 Other fecal abnormalities (principal); K57.30 Diverticulosis of large intestine without perforation or abscess without bleeding; D12.6 Benign neoplasm of colon, unspecified; D12.2 Benign neoplasm of ascending colon; I48.91 Unspecified atrial fibrillation; Z79.01 Long term (current) use of anticoagulants; K52.9 Noninfective gastroenteritis and colitis, unspecified; Z95.0 Presence of cardiac pacemaker; I25.2 Old myocardial infarction
CPT/HCPCS: 45385; 45380; 85610; 99152; 99153; J2250; J3010

== ENCOUNTER → 2020-09-04 08:06 | Outpatient (CLI) | payer MEDICARE, OTHER, SELFPAY ==
[2020-09-04 09:03] LABS: INR 3.5 (0.9-1.3); Prothrombin Time 40.7 SECONDS (10.1-12.7)
== END ==
PROVIDERS: PCP Family Medicine; Referring Provider Family Medicine; Visit Provider Family Medicine
DX: I48.0 Paroxysmal atrial fibrillation (principal)
CPT/HCPCS: 36415; 85610

== ENCOUNTER → 2020-09-18 08:55 | Outpatient (CLI) | payer MEDICARE, OTHER, SELFPAY ==
[2020-09-18 09:36] LABS: INR 2.1 (0.9-1.3); Prothrombin Time 23.3 SECONDS (10.1-12.7)
== END ==
PROVIDERS: PCP Family Medicine; Referring Provider Family Medicine; Visit Provider Family Medicine
DX: I48.0 Paroxysmal atrial fibrillation (principal)
CPT/HCPCS: 36415; 85610

== ENCOUNTER → 2020-10-27 09:04 | Outpatient (CLI) | payer MEDICARE, OTHER, SELFPAY ==
[2020-10-27 10:56] LABS: INR 2.1 (0.9-1.3); Prothrombin Time 24.1 SECONDS (10.1-12.7)
== END ==
PROVIDERS: PCP Family Medicine; Referring Provider Family Medicine; Visit Provider Family Medicine
DX: I48.0 Paroxysmal atrial fibrillation (principal)
CPT/HCPCS: 36415; 85610

== ENCOUNTER → 2020-11-21 07:35 | Outpatient (CLI) | payer MEDICARE, OTHER, SELFPAY ==
[2020-11-21 08:42] LABS: INR 3.4 (0.9-1.3)
== END ==
PROVIDERS: PCP Family Medicine; Referring Provider Family Medicine; Visit Provider Family Medicine
DX: I48.0 Paroxysmal atrial fibrillation (principal)
CPT/HCPCS: 36415; 85610

== ENCOUNTER → 2020-12-30 07:59 | Outpatient (CLI) | payer MEDICARE, OTHER, SELFPAY ==
[2020-12-30 10:05] LABS: INR 2.9 (0.9-1.3); Prothrombin Time 33.9 SECONDS (10.1-12.7)
== END ==
PROVIDERS: PCP Family Medicine; Referring Provider Family Medicine; Visit Provider Family Medicine
DX: I48.0 Paroxysmal atrial fibrillation (principal)
CPT/HCPCS: 36415; 85610

== ENCOUNTER → 2021-01-07 08:39 | Outpatient (CLI) | payer MEDICARE, OTHER, SELFPAY ==
[2021-01-07 11:16] LABS: BUN Creatinine Ratio 18.9 (6-22); Blood Urea Nitrogen 14 mg/dL (9-20); Calcium 8.8 mg/dL (8.4-10.2); Carbon Dioxide 28 mmol/L (22-32); Chloride 104 mmol/L (98-107); Cholesterol 95 mg/dL (140-199); Estimated Glomerular Filt Rate > 60.0 mL/min (>60); Glucose 100 mg/dL (80-110); HDL Cholesterol 35 mg/dL (40-60); HEMOLYSIS < 15 (0-50); LDL Cholesterol Calculated 42 mg/dL (<100); Potassium 4.2 mmol/L (3.4-5.1); Sodium 139 mmol/L (137-145); Triglycerides 88 mg/dL (35-150)
== END ==
PROVIDERS: PCP Family Medicine; Referring Provider Internal Medicine Interventional Cardiology; Visit Provider Internal Medicine Interventional Cardiology
DX: E78.5 Hyperlipidemia, unspecified (principal)
CPT/HCPCS: 36415; 80048; 80061

== ENCOUNTER → 2021-02-24 07:56 | Outpatient (CLI) | payer MEDICARE, OTHER, SELFPAY | PROVIDERS: PCP Family Medicine; Referring Provider Family Medicine; Visit Provider Family Medicine | DX: I48.0 Paroxysmal atrial fibrillation (principal) | CPT/HCPCS: 36415; 85610 ==

== ENCOUNTER → 2021-04-02 07:47 | Outpatient (CLI) | payer MEDICARE, OTHER, SELFPAY ==
[2021-04-02 08:13] LABS: INR 2.5 (0.9-1.3); Prothrombin Time 29.1 SECONDS (10.1-12.7)
== END ==
PROVIDERS: PCP Family Medicine; Referring Provider Family Medicine; Visit Provider Family Medicine
DX: I48.0 Paroxysmal atrial fibrillation (principal)
CPT/HCPCS: 36415; 85610

== ENCOUNTER → 2021-05-21 08:27 | Outpatient (CLI) | payer MEDICARE, OTHER, SELFPAY ==
[2021-05-21 10:05] LABS: INR 2.3 (0.9-1.3); Prothrombin Time 26.5 SECONDS (10.1-12.7)
== END ==
PROVIDERS: PCP Family Medicine; Referring Provider Family Medicine; Visit Provider Family Medicine
DX: I48.0 Paroxysmal atrial fibrillation (principal)
CPT/HCPCS: 36415; 85610

== ENCOUNTER → 2021-06-11 17:41 | Outpatient (CLI) | payer MEDICARE, OTHER, SELFPAY | PROVIDERS: PCP Family Medicine; Referring Provider Family Medicine; Visit Provider Family Medicine | DX: R42 Dizziness and giddiness (principal); I10 Essential (primary) hypertension; I48.0 Paroxysmal atrial fibrillation ==

== ENCOUNTER → 2021-06-16 10:39 | Outpatient (CLI) | payer MEDICARE, OTHER, SELFPAY ==
--- NOTE | 2021-06-16 11:12 | DI.CT.S_ITS ---
PROCEDURE: CT ANGIO HEAD AND NECK INDICATIONS: DIZZINESS AND GIDDINESS TECHNIQUE: Pre-contrast 4.5 mm thick sections acquired from the foramen magnum to the vertex. After the administration of intravenous contrast, 1 mm thick sections acquired from the aortic arch through the Hughes of [place]. Post-contrast 4.5 mm thick sections then re-acquired from the foramen magnum to the vertex. 3-dimensional nhrqawi-vftpmpecd-cijhqchasd (MIP) and/or volume rendering reformats were acquired of the central intracranial vasculature and neck separately. COMPARISON: None. FINDINGS: Image quality: Excellent. BRAIN: Moderate global cerebral volume loss and mild chronic microvascular ischemic change. No acute intracranial hemorrhage, abnormal extra-axial fluid collection, mass effect, or midline shift. The ventricular system and basilar cisterns are patent. Bal-white matter differentiation is maintained, without CT evidence of acute large territory infarct. No gross orbital abnormality other than intra-ocular lens replacements. Clear paranasal sinuses and mastoid air cells. Regional osseous structures intact. HEAD CT ANGIOGRAPHY: Anterior circulation: Intracranial internal carotid arteries are normal in size and flow. The flow within the paired anterior cerebral arteries is normal and symmetric. The flow within the middle cerebral arteries is normal and symmetric. The anterior communicating artery is seen. No aneurysms are seen. Posterior circulation: Visualized portions of the vertebral arteries demonstrate normal caliber, and join to form a normal appearing basilar artery. Flow within the posterior cerebral arteries is normal and symmetric. No aneurysms are seen. NECK CT ANGIOGRAPHY: Carotid system: The great vessels demonstrate a conventional anatomy as they arise from the aortic arch. The origins of the common carotid arteries appear patent. The common carotid arteries demonstrate normal caliber and courses. The bifurcation regions are both widely patent. The internal carotid arteries demonstrate normal calibers and courses. Posterior circulation: The origins of the vertebral arteries both appear widely patent. The more superior extracranial portions of both vertebral arteries also demonstrate normal courses and calibers. They join to form a normal appearing basilar artery. Soft tissues: Visualized neck soft tissues demonstrate no suspicious abnormalities. Bones: No suspicious bony lesions. Visualized cervical spine appears normally aligned. IMPRESSION: No hemodynamically significant narrowing of the major intracranial or extracranial arterial vasculature. Mild atherosclerotic change at the origins of the carotid and vertebral arteries, at the carotid bifurcations, and in the carotid siphons. No acute intracranial abnormality. Mild global cerebral volume loss and chronic microvascular ischemic change. Any quantitative measurements of stenosis were performed using NASCET criteria. Dictated by: Yaya Miranda M.D. on 06/16/2021 at 14:01 Approved by: Yaya Miranda M.D. on 06/16/2021 at 14:08
== END ==
PROVIDERS: PCP Family Medicine; Referring Provider Family Medicine; Visit Provider Family Medicine
DX: I48.0 Paroxysmal atrial fibrillation (principal); R42 Dizziness and giddiness; I10 Essential (primary) hypertension
CPT/HCPCS: 70496; 70498

== ENCOUNTER → 2021-06-25 09:46 | Outpatient (CLI) | payer MEDICARE, OTHER, SELFPAY ==
--- NOTE | 2021-07-16 16:52 | PM.CARDMON.1 ---
Compensation And Benefits Analyst Report Referral & Results Date Patient Seen: 06/25/21 Requesting provider: Satya Harrington Indication: Paroxysmal atrial fibrillation Duration of monitoring (days): 14 Diary information: There were 8 patient triggered events and 9 patient diary entries All of these patient events were associated variably with (within 45 seconds) atrial fibrillation and ventricular ectopy Data: Minimum heart rate identified was 57 beats per minute at 18:20 on 07/26/2021 Maximum heart rate was 184 beats per minute at 15:11 on 07/08/2021 during a run of ventricular tachycardia Patient was continuously in atrial fibrillation with heart rate between 60 and 130 beats per minute Less than 1% of identified beats were ventricular ectopic in origin There were 3 runs of ventricular tachycardia the longest lasting 7 beats at a rate of 117 beats per minute which upon review of the strip looks like complex multifocal VT Impression: Continuous atrial fibrillation with above rate range Rare runs of nonsustained polymorphic ventricular tachycardia as above Clinical correlation suggested
== END ==
PROVIDERS: PCP Family Medicine; Referring Provider Family Medicine; Visit Provider Family Medicine
DX: I48.0 Paroxysmal atrial fibrillation (principal)
CPT/HCPCS: 93246; 93248

== ENCOUNTER → 2021-07-01 07:42 | Outpatient (CLI) | payer MEDICARE, OTHER, SELFPAY ==
[2021-07-01 08:25] LABS: INR 2.7 (0.9-1.3)
== END ==
PROVIDERS: PCP Family Medicine; Referring Provider Family Medicine; Visit Provider Family Medicine
DX: I48.0 Paroxysmal atrial fibrillation (principal)
CPT/HCPCS: 36415; 85610

== ENCOUNTER → 2021-07-10 10:36 | Outpatient (CLI) | payer MEDICARE, OTHER, SELFPAY ==
--- NOTE | 2021-07-10 | DI.RAD.S_ITS ---
PROCEDURE: XR CHEST 2V INDICATIONS: CHRONIC COUGH TECHNIQUE: 2 views of the chest were acquired. COMPARISON: [facility], , CHEST 2 VIEW, 08/04/2017, 13:54. FINDINGS: Surgical changes and devices: Single lead left-sided pacemaker. Lungs and pleura: Chronic mild coarsening of the interstitial markings diffusely. No dense consolidations, effusion, or pneumothorax. Mediastinum: Normal mediastinal contour. Mild, chronic prominence of central pulmonary arteries. No central venous congestion. Mild cardiomegaly. Bones and chest wall: No suspicious bony abnormalities. Soft tissues appear unremarkable. IMPRESSION: 1. Mild cardiomegaly and diffuse interstitial thickening may be secondary to chronic edema. 2. Central pulmonary artery prominence raises the possibility of pulmonary artery hypertension. 3. No acute process. Dictated by: Luzma Real M.D. on 07/10/2021 at 13:24 Approved by: Luzma Real M.D. on 07/10/2021 at 13:27
== END ==
PROVIDERS: PCP Family Medicine; Referring Provider Family Medicine; Visit Provider Family Medicine
DX: I51.7 Cardiomegaly (principal); R05.3 Chronic cough
CPT/HCPCS: 71046

== ENCOUNTER → 2021-08-04 10:00 | Outpatient (CLI) | payer MEDICARE, OTHER, SELFPAY ==
[2021-08-04 13:00] LABS: INR 2.8 (0.9-1.3)
== END ==
PROVIDERS: PCP Family Medicine; Referring Provider Family Medicine; Visit Provider Family Medicine
DX: I48.0 Paroxysmal atrial fibrillation (principal)
CPT/HCPCS: 36415; 85610

== ENCOUNTER → 2021-09-10 07:45 | Outpatient (CLI) | payer MEDICARE, OTHER, SELFPAY ==
[2021-09-10 10:48] LABS: Prothrombin Time 34.8 SECONDS (10.1-12.7)
== END ==
PROVIDERS: PCP Family Medicine; Referring Provider Family Medicine; Visit Provider Family Medicine
DX: I48.0 Paroxysmal atrial fibrillation (principal)
CPT/HCPCS: 36415; 85610

== ENCOUNTER → 2021-10-07 07:48 | Outpatient (CLI) | payer MEDICARE, OTHER, SELFPAY ==
[2021-10-07 09:04] LABS: INR 3.7 (0.9-1.3); Prothrombin Time 42.9 SECONDS (10.1-12.7)
== END ==
PROVIDERS: PCP Family Medicine; Referring Provider Family Medicine; Visit Provider Family Medicine
DX: I48.0 Paroxysmal atrial fibrillation (principal)
CPT/HCPCS: 36415; 85610

== ENCOUNTER → 2021-10-15 07:50 | Outpatient (CLI) | payer MEDICARE, OTHER, SELFPAY ==
--- NOTE | 2021-10-15 | DI.ECHO.S_ITS ---
[place] [facility]---------[facility] +---------+ : : [address] : : : : [id number] : : : : Phone: [phone] Echocardiogram Report + + :Name: DREW FERMIN Study Date: 10/15/2021 Height: 70 in : :[facility] ReadingLocation: Weight: 190 lb : : Gender: Male BSA: 2.0 m2 : :: 1940 Age: 81 yrs BP: 159/89 mmHg: :Reason For Study: ATRIAL FIBRILLATION : :Ordering Physician: MARCELINO, : :CESAR Performed By: Lauren Overton : :Referring: CESAR BENSON : + + Interpretation Summary Mild concentric left ventricular hypertrophy with ejection fraction 55-60%. Mild to moderately dilated right ventricle with mildly reduced right ventricular systolic function. There is a pacemaker lead in the right ventricle. Severe biatrial enlargement. Mild aortic valve sclerosis. Mild to moderate mitral regurgitation. Moderate tricuspid regurgitation. The right ventricular systolic pressure is estimated to be at least 63 mmHg based on an estimated right atrial pressure of 8 mm Hg. Comparison is made with the echocardiogram of 01/01/2020, LV wall thickness has increased and pulmonary pressure has increased. Procedure: A two-dimensional transthoracic echocardiogram with color flow and Doppler was performed. The study quality was technically adequate. Comparison is made with the echocardiogram of 01/01/2020. The patient has a paced rhythm. The heart rate ranged between 59-63 bpm during the study. Left Ventricle: The left ventricle is normal in size. There is mild concentric left ventricular hypertrophy. The ejection fraction is estimated to be 55-60%. Septal motion is consistent with conduction abnormality. There are no other obvious focal wall motion abnormalities. Diastolic function could not be accurately assessed due to paced rhythm. Right Ventricle: There is a pacemaker lead in the right ventricle. The right ventricle is mild to moderately dilated. Right ventricular systolic function is mildly reduced. Atria: There is severe biatrial enlargement. There is no Doppler evidence for an interatrial shunt. Mitral Valve: The mitral valve leaflets appear mildly thickened, but open well. There is a flat closure plane of the the mitral valve leaflets. There is mild to moderate mitral regurgitation. Aortic Valve: The aortic valve is trileaflet. The aortic valve opens well. There is mild aortic valve sclerosis. There is no aortic valve stenosis. No aortic regurgitation is present. Tricuspid Valve: The tricuspid valve is normal in structure and function. There is moderate tricuspid regurgitation. The right ventricular systolic pressure is estimated to be at least 63 mmHg based on an estimated right atrial pressure of 8 mm Hg. Pulmonic Valve: The pulmonic valve leaflets are thin and pliable; valve motion is normal. There is trace pulmonic regurgitation. Great Vessels: The aortic root is normal size. The dimensions of the ascending aorta are normal. The IVC is dilated (diameter is greater than 2.1 cm) yet it collapses greater than 50% with a sniff. This suggests a right atrial pressure of 8 mm Hg. Pericardium/ Pleura There is no pericardial effusion. There is no pleural effusion. MMode/2D Measurements & Calculations LVIDd: 4.6 cm LVOT diam: 2.2 cm LVIDs: 3.3 cm Ao root diam: 3.3 cm FS: 29.4 % asc Aorta Diam: 3.4 cm IVSd: 1.3 cm Ao Arch Diam (Prox Trans): 2.7 cm LVPWd: 1.1 cm LV pena. diameter/BSA (cm/m^2): 2.3 LV sys. diameter/BSA (cm/m^2): 1.6 LA A2 area: 35.3 cm2 RA long axis: 7.2 cm LA A4 area: 35.5 cm2 RA area: 29.5 cm2 LA length (vol): 7.2 cm RA vol: 103.3 ml LA vol: 146.9 ml RA : 50.6 ml/m2 LA vol index: 71.9 ml/m2 IVC diam: 2.2 cm RVD1 (basal): 4.6 cm RVD2 (mid): 4.0 cm TAPSE: 1.4 cm Doppler Measurements & Calculations Ao V2 max: 192.9 cm/sec LVOT Max Juan: 75.2 cm/sec Ao V2 mean: 124.7 cm/sec LV V1 max P.3 mmHg Ao max P.9 mmHg LV V1 VTI: 13.5 cm Ao mean P.1 mmHg CHEPE(I,D): 1.5 cm2 Ao V2 VTI: 34.2 cm CHEPE(V,D): 1.5 cm2 sev ratio: 0.39 CHEPE indexed to BSA (cm^2/m^2): 0.76 MV E max juan: 103.6 cm/sec TR max juna: 372.0 cm/sec MV A max juan: 3.8 cm/sec TR max P.4 mmHg MV E/A: 27.3 PA V2 max: 117.5 cm/sec Med Peak E' Juan: 5.9 cm/sec PA V2 mean: 65.0 cm/sec E/E' med: 17.6 PA mean P.1 mmHg Lat Peak E' Juan: 9.7 cm/sec PA pr(Accel): 51.6 mmHg E/E' lat: 10.7 E/e' average: 14.2 MV dec time: 0.22 sec SV(LVOT): 52.7 ml Electronically signed by: Case Escamilla on Reading Physician:10/20/2021 08:57 AM
== END ==
PROVIDERS: PCP Family Medicine; Referring Provider Family Medicine; Visit Provider Family Medicine
DX: I08.3 Combined rheumatic disorders of mitral, aortic and tricuspid valves (principal); I48.0 Paroxysmal atrial fibrillation; Z95.0 Presence of cardiac pacemaker
CPT/HCPCS: 93306

== ENCOUNTER → 2021-10-26 12:16 | Outpatient (CLI) | payer MEDICARE, OTHER, SELFPAY ==
--- NOTE | 2021-10-26 | DI.RAD.S_ITS ---
PROCEDURE: XR KNEE LT 3V INDICATIONS: Pain in left knee TECHNIQUE: 3 views of the knee were acquired. COMPARISON: None. FINDINGS: Bones: Minimally displaced fracture involving the proximal pole of the patella.. No suspicious bony lesions. Moderate lateral patellofemoral knee joint space narrowing with tricompartmental periarticular osteophyte formation. Soft tissues: Small joint effusion. No suspicious soft tissue calcifications. Vascular calcifications indicate atherosclerosis. IMPRESSION: 1. Minimally displaced proximal pole patellar fracture. 2. Tricompartmental knee joint degeneration, most notably and severe involving the lateral patellofemoral knee joint. 3. Chondrocalcinosis. Differential diagnosis includes but is not limited to hemochromatosis, hyperparathyroidism and CPPD. Dictated by: Donn Miranda [facility] Interpreted: Ele Robles MD on 10/26/2021 at 12:43 Transcribed by: TORITO on 10/26/2021 at 12:46 Approved by: Ele Robles MD, PhD on 10/26/2021 at 12:52
== END ==
PROVIDERS: PCP Family Medicine; Referring Provider Family Medicine; Visit Provider Family Medicine
DX: S82.092A Other fracture of left patella, initial encounter for closed fracture (principal); M17.12 Unilateral primary osteoarthritis, left knee; M11.262 Other chondrocalcinosis, left knee; M25.562 Pain in left knee
CPT/HCPCS: 73562

== ENCOUNTER → 2021-12-07 07:30 | Outpatient (CLI) | payer MEDICARE, OTHER, SELFPAY ==
[2021-12-07 09:16] LABS: Prothrombin Time 61.8 SECONDS (10.1-12.7)
[2021-12-07 09:19] LABS: INR 5.3 (0.9-1.3)
== END ==
PROVIDERS: PCP Family Medicine; Referring Provider Family Medicine; Visit Provider Family Medicine
DX: I48.0 Paroxysmal atrial fibrillation (principal)
CPT/HCPCS: 36415; 85610

== ENCOUNTER → 2021-12-21 07:34 | Outpatient (CLI) | payer MEDICARE, OTHER, SELFPAY ==
[2021-12-21 08:58] LABS: INR 2.1 (0.9-1.3); Prothrombin Time 24.5 SECONDS (10.1-12.7)
[2021-12-21 10:42] LABS: Vitamin D 25 Hydroxy (D3) 58.3 ng/mL (30.0-100.0)
== END ==
PROVIDERS: PCP Family Medicine; Referring Provider Family Medicine; Visit Provider Family Medicine
DX: I48.0 Paroxysmal atrial fibrillation (principal); E55.9 Vitamin D deficiency, unspecified
CPT/HCPCS: 36415; 82306; 85610

== ENCOUNTER → 2022-01-05 08:37 | Outpatient (CLI) | payer MEDICARE, OTHER, SELFPAY ==
[2022-01-05 10:56] LABS: INR 1.8 (0.9-1.3); Prothrombin Time 20.5 SECONDS (10.1-12.7)
== END ==
PROVIDERS: PCP Family Medicine; Referring Provider Family Medicine; Visit Provider Family Medicine
DX: I48.0 Paroxysmal atrial fibrillation (principal)
CPT/HCPCS: 36415; 85610

== ENCOUNTER → 2022-01-08 10:23 | Outpatient (CLI) | payer MEDICARE, OTHER, SELFPAY ==
--- NOTE | 2022-01-08 | DI.RAD.S_ITS ---
PROCEDURE: XR CHEST 2V INDICATIONS: Hypoxemia TECHNIQUE: 2 views of the chest were acquired. COMPARISON: [facility], CR, XR CHEST 2V, 07/10/2021, 10:27. FINDINGS: Surgical changes and devices: Left-sided pacer. Lungs and pleura: There is moderate to severe diffuse reticulonodular pulmonary opacity. No pleural effusions or pneumothorax. Mediastinum: Mediastinal contours are normal. Heart size is normal. Bones and chest wall: No suspicious bony abnormalities. Soft tissues appear unremarkable. IMPRESSION: Bilateral pneumonia. Dictated by: Leobardo Cabrera M.D. on 01/08/2022 at 12:55 Approved by: Leobardo Cabrera M.D. on 01/08/2022 at 12:56
== END ==
PROVIDERS: PCP Family Medicine; Referring Provider Family Medicine; Visit Provider Family Medicine
DX: R09.02 Hypoxemia (principal); J18.9 Pneumonia, unspecified organism
CPT/HCPCS: 71046

== ENCOUNTER → 2022-01-25 15:56 | Outpatient (CLI) | payer MEDICARE, OTHER, SELFPAY ==
--- NOTE | 2022-01-25 16:01 | DI.RAD.S_ITS ---
PROCEDURE: XR CHEST 2V INDICATIONS: DYSPENA TECHNIQUE: 2 views of the chest were acquired. COMPARISON: [facility], CR, XR CHEST 2V, 01/08/2022, 10:31. FINDINGS: Surgical changes and devices: Stable positioning of single chamber left cardiac pacer. Lungs and pleura: Diffuse, widespread bilateral pulmonary interstitial and air space opacities are present which appears slightly decreased when compared to the prior examination dated 01/08/2022. 1.2 cm nodular opacity projected over the right lung base. No pleural effusion or pneumothorax. Mediastinum: Mediastinal contours are normal. Heart size is enlarged. Bones and chest wall: No suspicious bony abnormalities. Soft tissues appear unremarkable. IMPRESSION: 1. Persistent cardiomegaly and diffuse, widespread bilateral interstitial opacities suspicious for CHF/fluid overload. Differential would also include atypical pneumonia. 2. 1.2 cm nodular opacity projected over the right lung base which may be related to residual focal edema; however pulmonary nodule cannot be excluded and continued radiographic surveillance is recommended. Dictated by: Donn MICHAEL Interpreted: Maricruz Kennedy MD on 01/25/2022 at 16:15 Transcribed by: KEO on 01/25/2022 at 16:21 Approved by: Maricruz Kennedy M.D. on 01/25/2022 at 16:52
== END ==
PROVIDERS: PCP Family Medicine; Referring Provider Family Medicine; Visit Provider Family Medicine
DX: R06.00 Dyspnea, unspecified (principal); I51.7 Cardiomegaly
CPT/HCPCS: 71046

== ENCOUNTER → 2022-02-11 09:53 | Outpatient (CLI) | payer MEDICARE, OTHER, SELFPAY ==
--- NOTE | 2022-02-11 | DI.NM.S_ITS ---
PROCEDURE: NM NIRU PERF SPECT R&S PHARM Rest and pharmacological stress myocardial perfusion SPECT with gated imaging and ejection fraction RADIOPHARMACEUTICAL: 12.0 mCi Tc-99m tetrafosmin IV at rest and 25.3 mCi Tc-99m tetrafosmin IV at peak effect of pharmacological stress. A [id number] was performed. INDICATIONS: Chronic atrial fibrillation, unspecified TECHNIQUE: Radiopharmaceutical was injected at peak stress test, and also at rest. SPECT images were obtained. SPECT myocardial perfusion images were displayed in short axis, horizontal long axis, and vertical long axis views. Gated images were reviewed using Yotpo software. COMPARISON: None. CARDIAC STRESS: A pharmacologic stress test was performed under the supervision of an attending staff, using an infusion of regadenoson. Hemodynamic data: There is normal blood pressure and heart rate response to pharmacologic stress. Symptoms: The patient denied anginal chest pain. EKG: Baseline ECG underlying atrial fibrillation with ventricular pacing. ECG post vasodilator infusion demonstrated deep T wave inversions leads II, III, aVF, V3 to V6 and a 7 beat run NSVT. FINDINGS: Raw data: There is good myocardial uptake of radiotracer. No significant motion artifacts. Weru-jj-whrci ratio is 0.27 (normal is less than 0.38 for tetrafosmin tracer). Left ventricle function: Gated images demonstrate normal left ventricular wall thickening. No segmental wall motion abnormalities. No transient ischemic dilation; TID is 1.0 (normal less than 1.3). Left ventricle resting end diastolic volume is 156 mL. Left ventricle stress ejection fraction is 67%; normal range is above 45%. Myocardial perfusion: There is a large size, moderate intensity fixed inferior wall defect in the rest and supine images that resolves with prone imaging. No reversible perfusion defects. IMPRESSION: No reversible perfusion defects. The large size, moderate intensity fixed inferior wall defect seen in the rest and supine images resolves with prone imaging. Increased LVEDV at 156 mL with preserved ejection fraction Deep T wave inversions noted on ECG after vasodilator infusion are not diagnostic of ischemia. Dictated by: Laurence Springer D.O. on 02/15/2022 at 16:44 Approved by: Laurence Springer D.O. on 02/15/2022 at 16:49
[2022-02-11 14:05] LABS: COVID19 -Nasal RAPID Negative (Negative)
== END ==
PROVIDERS: PCP Family Medicine; Referring Provider Internal Medicine Interventional Cardiology; Visit Provider Internal Medicine Interventional Cardiology
DX: I48.20 Chronic atrial fibrillation, unspecified (principal); I49.8 Other specified cardiac arrhythmias; Z20.822 Contact with and (suspected) exposure to COVID-19
CPT/HCPCS: 78452; 87635; 93017; A9502; J2785

== ENCOUNTER → 2022-02-17 12:57 | Outpatient (CLI) | payer MEDICARE, OTHER, SELFPAY ==
[2022-02-18 15:08] LABS: COVID19 -Nasal RAPID Negative (Negative)
== END ==
PROVIDERS: PCP Family Medicine; Referring Provider Internal Medicine; Visit Provider Internal Medicine
DX: Z20.822 Contact with and (suspected) exposure to COVID-19 (principal)
CPT/HCPCS: 87635; C9803

== ENCOUNTER → 2022-02-18 14:02 | Outpatient (CLI) | payer MEDICARE, OTHER, SELFPAY ==
--- NOTE | 2022-02-24 11:24 | PM.PFT.1 ---
Pulmonary Function Test Referral & Results Date Patient Seen: 02/18/22 Requesting provider: Nhan Villa Results: The spirometry demonstrates an FVC of 3.79 L which is 93% of predicted. The FEV1 was measured at 2.67 L which is 92% of predicted. The FEV1/FVC ratio was 70 which is 97% of predicted. Following the administration of bronchodilator there was no appreciable change to above normal numbers. Lung volumes show an SVC of 3.62 L which is 82% of predicted. The diffusing capacity was measured at 11.85 which is 36% of predicted. No hemoglobin value was provided, so no correction for potential anemia could be made, if appropriate. The maximum voluntary ventilation was normal Interpretation: This study demonstrates normal spirometry but a moderately severely reduced diffusing capacity suggesting significant disease at the capillary alveolar level Clinical correlation suggested
== END ==
PROVIDERS: PCP Family Medicine; Referring Provider Internal Medicine Critical Care Medicine; Visit Provider Internal Medicine Critical Care Medicine
DX: J44.9 Chronic obstructive pulmonary disease, unspecified (principal); I27.20 Pulmonary hypertension, unspecified; R09.02 Hypoxemia; Z87.891 Personal history of nicotine dependence
CPT/HCPCS: 94060; 94726; 94729

== ENCOUNTER → 2022-03-01 12:24 | Outpatient (CLI) | payer MEDICARE, OTHER, SELFPAY ==
[2022-03-01 14:17] LABS: INR 2.5 (0.9-1.3)
[2022-03-01 14:20] LABS: BUN Creatinine Ratio 20.8 (6-22); Blood Urea Nitrogen 16 mg/dL (9-20); Calcium 8.8 mg/dL (8.4-10.2); Carbon Dioxide 30 mmol/L (22-32); Chloride 101 mmol/L (98-107); Estimated Glomerular Filt Rate > 60 mL/min (>60); Glucose 81 mg/dL (80-110); HEMOLYSIS < 15 (0-50); Potassium 3.9 mmol/L (3.4-5.1); Sodium 139 mmol/L (137-145)
== END ==
PROVIDERS: PCP Family Medicine; Referring Provider Nurse Practitioner Family; Visit Provider Nurse Practitioner Family
DX: I48.0 Paroxysmal atrial fibrillation (principal); I48.20 Chronic atrial fibrillation, unspecified
CPT/HCPCS: 36415; 80048; 85610

== ENCOUNTER → 2022-03-04 09:01 | Outpatient (CLI) | payer MEDICARE, OTHER, SELFPAY ==
[2022-03-04 12:01] LABS: Cholesterol 123 mg/dL (140-199); HDL Cholesterol 38 mg/dL (40-60); LDL Cholesterol Calculated 72 mg/dL (<100); Triglycerides 64 mg/dL (35-150)
[2022-03-04 12:38] LABS: Prostate Specific Antigen Scrn < 0.064 ng/mL (0.1-4.0)
== END ==
PROVIDERS: PCP Family Medicine; Referring Provider Family Medicine; Visit Provider Family Medicine
DX: E78.5 Hyperlipidemia, unspecified (principal); C61 Malignant neoplasm of prostate
CPT/HCPCS: 36415; 80061; 84153; G0103

== ENCOUNTER → 2022-03-29 07:32 | Outpatient (CLI) | payer MEDICARE, OTHER, SELFPAY ==
[2022-03-29 07:55] LABS: Add Manual Diff / Slide Review NO; Basophils Absolute Auto 100 /uL (0-100); Basophils Percent Auto 0.7 % (0-2); Eosinophils Absolute Auto 400 /uL (0-450); Hematocrit 42.9 % (41-53); Hemoglobin 14.6 g/dL (13.5-17.5); Lymphocytes Absolute Auto 1200 /uL (1100-4500); Lymphocytes Percent Auto 17.5 % (25-40); Mean Corpuscular HGB Conc 34.2 % (30-36); Mean Corpuscular Hemoglobin 30.5 PG (26-34); Mean Corpuscular Volume 89.2 fL (80-100); Monocytes Absolute Auto 700 /uL (0-900); Monocytes Percent Auto 9.6 % (3-14); Neutrophils Absolute Auto 4800 /uL (1500-7000); Neutrophils Percent Auto 67.2 % (50-75); Platelet Count 162 X10^3/uL (150-400); Red Blood Cell Count 4.81 X10^6/uL (4.5-5.9); Red Cell Distribution Width 16.8 % (11.6-14.8); White Blood Cell Count 7.2 X10^3/uL (4.5-11.0)
[2022-03-29 08:24] LABS: Alanine Aminotransferase 16 IU/L (<50); Albumin 3.9 g/dL (3.5-5.0); Albumin Globulin Ratio 1.2 (1.0-2.8); Alkaline Phosphatase 66 U/L (38-126); Aspartate Aminotransferase 21 IU/L (17-59); BUN Creatinine Ratio 17.6 (6-22); Bilirubin Total 1.1 mg/dL (0.2-1.3); Blood Urea Nitrogen 15 mg/dL (9-20); Calcium 8.9 mg/dL (8.4-10.2); Carbon Dioxide 30 mmol/L (22-32); Chloride 100 mmol/L (98-107); Estimated Glomerular Filt Rate > 60 mL/min (>60); Globulin 3.3 g/dL (1.7-4.1); Glucose 116 mg/dL (80-110); HEMOLYSIS < 15 (0-50); Potassium 4.1 mmol/L (3.4-5.1); Sodium 138 mmol/L (137-145); Total Protein 7.2 g/dL (6.3-8.2)
[2022-03-29 08:31] LABS: NT-proBNP (BNP-Adult 18+) 1550 pg/mL (<450)
== END ==
PROVIDERS: PCP Family Medicine; Referring Provider Internal Medicine Interventional Cardiology; Visit Provider Internal Medicine Interventional Cardiology
DX: R06.02 Shortness of breath (principal)
CPT/HCPCS: 36415; 80053; 83880; 85025

== ENCOUNTER → 2022-06-03 07:41 | Outpatient (CLI) | payer MEDICARE, OTHER, SELFPAY ==
[2022-06-03 10:27] LABS: INR 2.7 (0.9-1.3); Prothrombin Time 30.9 SECONDS (10.1-12.7)
== END ==
PROVIDERS: PCP Family Medicine; Referring Provider Family Medicine; Visit Provider Family Medicine
DX: I48.0 Paroxysmal atrial fibrillation (principal)
CPT/HCPCS: 36415; 85610

== ENCOUNTER → 2022-06-28 10:56 | Outpatient (CLI) | payer MEDICARE, OTHER, SELFPAY ==
--- NOTE | 2022-06-28 | DI.RAD.S_ITS ---
PROCEDURE: XR CHEST 2V INDICATIONS: Chronic obstructive pulmonary disease, unspecified TECHNIQUE: 2 views of the chest were acquired. COMPARISON: [facility], CT, CT CHEST WITH CONTRAST, 03/05/2022, 15:24. [facility], CR, XR CHEST 2V, 01/25/2022, 16:05. [facility], CR, XR CHEST 2V, 01/08/2022, 10:31. FINDINGS: Surgical changes and devices: Left pacemaker. Lungs and pleura: Prominent pulmonary markings. Emphysematous change. No silhouetting. No pleural effusions or pneumothorax. Mediastinum: Mediastinal contours are unchanged. Heart size is prominent. Bones and chest wall: No suspicious bony abnormalities. Soft tissues appear unremarkable. IMPRESSION: Emphysematous change. Prominent pulmonary markings. This could be due to fluid overload/CHF or emphysematous change. Dictated by: Roger Marks M.D. on 06/28/2022 at 11:25 Approved by: Roger Marks M.D. on 06/28/2022 at 11:28
== END ==
PROVIDERS: PCP Family Medicine; Referring Provider Family Medicine; Visit Provider Family Medicine
DX: R05.3 Chronic cough (principal); J44.9 Chronic obstructive pulmonary disease, unspecified; R09.02 Hypoxemia
CPT/HCPCS: 71046

== ENCOUNTER → 2022-07-08 07:42 | Outpatient (CLI) | payer MEDICARE, OTHER, SELFPAY ==
[2022-07-08 08:12] LABS: INR 2.7 (0.9-1.3); Prothrombin Time 31.5 SECONDS (10.1-12.7)
== END ==
PROVIDERS: PCP Family Medicine; Referring Provider Family Medicine; Visit Provider Family Medicine
DX: I48.0 Paroxysmal atrial fibrillation (principal)
CPT/HCPCS: 36415; 85610

== ENCOUNTER → 2022-09-20 16:10 | Outpatient (CLI) | payer MEDICARE, OTHER, SELFPAY ==
--- NOTE | 2022-09-20 | DI.RAD.S_ITS ---
PROCEDURE: XR CHEST 2V INDICATIONS: Hypoxemia TECHNIQUE: 2 views of the chest were acquired. COMPARISON: [facility], CR, XR CHEST 2V, 06/28/2022, 10:58. FINDINGS: Surgical changes and devices: Pacemaker. Lungs and pleura: Increased appearance of interstitial opacities. Mediastinum: Mediastinal contours are normal. Heart size is enlarged. Bones and chest wall: No suspicious bony abnormalities. Soft tissues appear unremarkable. IMPRESSION: Increased interstitial opacities suggestive of edema. Underlying pneumonia cannot be excluded. Dictated by: Maricruz Kennedy M.D. on 09/20/2022 at 17:09 Approved by: Maricruz Kennedy M.D. on 09/20/2022 at 17:11
== END ==
PROVIDERS: PCP Family Medicine; Referring Provider Family Medicine; Visit Provider Family Medicine
DX: R91.8 Other nonspecific abnormal finding of lung field (principal)
CPT/HCPCS: 71046

== ENCOUNTER → 2022-09-23 07:47 | Outpatient (CLI) | payer MEDICARE, OTHER, SELFPAY ==
[2022-09-23 08:41] LABS: INR 2.3 (0.9-1.3); Prothrombin Time 26.4 SECONDS (10.1-12.7)
== END ==
PROVIDERS: PCP Family Medicine; Referring Provider Family Medicine; Visit Provider Family Medicine
DX: I48.0 Paroxysmal atrial fibrillation (principal)
CPT/HCPCS: 36415; 85610

== ENCOUNTER → 2022-10-06 07:47 | Outpatient (CLI) | payer MEDICARE, OTHER, SELFPAY ==
[2022-10-06 08:45] LABS: Blood Urea Nitrogen 21 mg/dL (9-20); Carbon Dioxide 29 mmol/L (22-32); Chloride 103 mmol/L (98-107); Estimated Glomerular Filt Rate > 60 mL/min (>60); Glucose 116 mg/dL (80-110); HEMOLYSIS < 15 (0-50); Potassium 4.2 mmol/L (3.4-5.1); Sodium 138 mmol/L (137-145)
[2022-10-06 08:53] LABS: NT-proBNP (BNP-Adult 18+) 3380 pg/mL (<450)
== END ==
PROVIDERS: PCP Family Medicine; Referring Provider Internal Medicine Interventional Cardiology; Visit Provider Internal Medicine Interventional Cardiology
DX: R06.02 Shortness of breath (principal)
CPT/HCPCS: 36415; 80048; 83880

== ENCOUNTER → 2022-10-27 07:57 | Outpatient (CLI) | payer MEDICARE, OTHER, SELFPAY ==
[2022-10-27 10:29] LABS: INR 2.1 (0.9-1.3); Prothrombin Time 24.5 SECONDS (10.1-12.7)
[2022-10-27 10:33] LABS: BUN Creatinine Ratio 26.1 (6-22); Blood Urea Nitrogen 30 mg/dL (9-20); Calcium 8.9 mg/dL (8.4-10.2); Carbon Dioxide 29 mmol/L (22-32); Chloride 102 mmol/L (98-107); Estimated Glomerular Filt Rate > 60 mL/min (>60); Glucose 89 mg/dL (80-110); HEMOLYSIS < 15 (0-50); Potassium 4.3 mmol/L (3.4-5.1); Sodium 139 mmol/L (137-145)
[2022-10-27 10:42] LABS: NT-proBNP (BNP-Adult 18+) 1750 pg/mL (<450)
== END ==
PROVIDERS: PCP Family Medicine; Referring Provider Internal Medicine Interventional Cardiology; Visit Provider Internal Medicine Interventional Cardiology
DX: I50.32 Chronic diastolic (congestive) heart failure (principal); I48.0 Paroxysmal atrial fibrillation
CPT/HCPCS: 36415; 80048; 83880; 85610

== ENCOUNTER → 2022-11-15 07:45 | Outpatient (CLI) | payer MEDICARE, OTHER, SELFPAY ==
[2022-11-15 09:11] LABS: INR 2.8 (0.9-1.3)
== END ==
PROVIDERS: PCP Family Medicine; Referring Provider Family Medicine; Visit Provider Family Medicine
DX: I48.0 Paroxysmal atrial fibrillation (principal)
CPT/HCPCS: 36415; 85610

== ENCOUNTER → 2022-12-07 13:42 | Outpatient (CLI) | payer MEDICARE, OTHER, SELFPAY ==
[2022-12-07 16:12] LABS: BUN Creatinine Ratio 19.8 (6-22); Blood Urea Nitrogen 21 mg/dL (9-20); Calcium 8.9 mg/dL (8.4-10.2); Carbon Dioxide 28 mmol/L (22-32); Chloride 100 mmol/L (98-107); Estimated Glomerular Filt Rate > 60 mL/min (>60); Glucose 74 mg/dL (80-110); HEMOLYSIS < 15 (0-50); NT-proBNP (BNP-Adult 18+) 4270 pg/mL (<450); Potassium 4.2 mmol/L (3.4-5.1); Sodium 138 mmol/L (137-145)
== END ==
PROVIDERS: PCP Family Medicine; Referring Provider Internal Medicine Interventional Cardiology; Visit Provider Internal Medicine Interventional Cardiology
DX: I48.0 Paroxysmal atrial fibrillation (principal); I50.32 Chronic diastolic (congestive) heart failure
CPT/HCPCS: 36415; 80048; 83880; 85610

== ENCOUNTER → 2022-12-17 08:03 | Outpatient (CLI) | payer MEDICARE, OTHER, SELFPAY ==
[2022-12-17 09:36] LABS: Prothrombin Time 35.1 SECONDS (10.1-12.7)
== END ==
PROVIDERS: PCP Family Medicine; Referring Provider Family Medicine; Visit Provider Family Medicine
DX: I48.0 Paroxysmal atrial fibrillation (principal)
CPT/HCPCS: 36415; 85610

== ENCOUNTER → 2022-12-28 11:21 | Outpatient (CLI) | payer MEDICARE, OTHER, SELFPAY ==
--- NOTE | 2022-12-28 11:23 | DI.RAD.S_ITS ---
PROCEDURE: XR CHEST 2V INDICATIONS: CHRONIC COUGH TECHNIQUE: 2 views of the chest were acquired. COMPARISON: [facility], CR, XR CHEST 2V, 06/28/2022, 10:58. [facility], CR, XR CHEST 2V, 09/20/2022, 16:23. FINDINGS: Surgical changes and devices: Pacemaker Lungs and pleura: Diffuse interstitial prominence. No acute infiltrates. No pleural effusions or pneumothorax. Mediastinum: Mediastinal contours are normal. Moderate cardiomegaly, as before. Bones and chest wall: No suspicious bony abnormalities. Soft tissues appear unremarkable. IMPRESSION: Moderate cardiomegaly, diffuse interstitial prominence. Cannot exclude a degree of interstitial pulmonary edema. No focal pneumonia. Dictated by: Jey Rankin M.D. on 12/28/2022 at 12:03 Approved by: Jey Rankin M.D. on 12/28/2022 at 12:04
== END ==
PROVIDERS: PCP Family Medicine; Referring Provider Family Medicine; Visit Provider Family Medicine
DX: I51.7 Cardiomegaly (principal); R05.3 Chronic cough
CPT/HCPCS: 71046

== ENCOUNTER → 2023-01-24 11:23 | Outpatient (CLI) | payer MEDICARE, OTHER, SELFPAY ==
[2023-01-24 13:39] LABS: INR 2.9 (0.9-1.3); Prothrombin Time 33.3 SECONDS (10.1-12.7)
[2023-01-24 13:53] LABS: BUN Creatinine Ratio 18.2 (6-22); Blood Urea Nitrogen 16 mg/dL (9-20); Calcium 9.3 mg/dL (8.4-10.2); Carbon Dioxide 25 mmol/L (22-32); Chloride 103 mmol/L (98-107); Estimated Glomerular Filt Rate > 60 mL/min (>60); Glucose 72 mg/dL (80-110); HEMOLYSIS 29 (0-50); Potassium 4.9 mmol/L (3.4-5.1); Sodium 137 mmol/L (137-145)
== END ==
PROVIDERS: PCP Family Medicine; Referring Provider Internal Medicine Interventional Cardiology; Visit Provider Internal Medicine Interventional Cardiology
DX: I48.0 Paroxysmal atrial fibrillation (principal); I50.32 Chronic diastolic (congestive) heart failure
CPT/HCPCS: 36415; 80048; 85610

== ENCOUNTER 2023-02-10 10:15 | Outpatient (RCR) | payer MEDICARE, OTHER, SELFPAY | END 2023-02-10 15:15 | LOC: PUL 10:15 | PROVIDERS: PCP Family Medicine; Referring Provider Internal Medicine; Visit Provider Internal Medicine | DX: I27.20 Pulmonary hypertension, unspecified (principal) | CPT/HCPCS: G0237; G0238 ==

== ENCOUNTER → 2023-03-01 07:51 | Outpatient (CLI) | payer MEDICARE, OTHER, SELFPAY ==
[2023-03-01 09:11] LABS: INR 2.6 (0.9-1.3); Prothrombin Time 30.3 SECONDS (10.1-12.7)
[2023-03-01 09:27] LABS: BUN Creatinine Ratio 28.6 (6-22); Blood Urea Nitrogen 34 mg/dL (9-20); Carbon Dioxide 26 mmol/L (22-32); Chloride 100 mmol/L (98-107); Estimated Glomerular Filt Rate > 60 mL/min (>60); Glucose 141 mg/dL (80-110); HEMOLYSIS < 15 (0-50); Potassium 4.8 mmol/L (3.4-5.1); Sodium 135 mmol/L (137-145)
[2023-03-01 09:30] LABS: NT-proBNP (BNP-Adult 18+) 1570 pg/mL (<450)
== END ==
PROVIDERS: PCP Family Medicine; Referring Provider Family Medicine; Visit Provider Family Medicine
DX: I48.0 Paroxysmal atrial fibrillation (principal); I50.32 Chronic diastolic (congestive) heart failure
CPT/HCPCS: 36415; 80048; 83880; 85610

== ENCOUNTER → 2023-04-06 17:24 | Outpatient (ROUT) | payer MEDICARE, OTHER, SELFPAY ==
[2023-04-06 17:37] LABS: INR 2.7 (0.9-1.3); Prothrombin Time 31.4 SECONDS (9.4-12.5)
== END ==
PROVIDERS: PCP Family Medicine; Visit Provider Family Medicine
DX: I48.0 Paroxysmal atrial fibrillation (principal)
CPT/HCPCS: 85610

== ENCOUNTER → 2023-05-12 07:52 | Outpatient (CLI) | payer MEDICARE, OTHER, SELFPAY ==
[2023-05-12 08:45] LABS: INR 2.8 (0.9-1.3); Prothrombin Time 32.2 SECONDS (9.4-12.5)
== END ==
LOC: LAB 07:55
PROVIDERS: PCP Family Medicine; Referring Provider Family Medicine; Visit Provider Family Medicine
DX: I48.0 Paroxysmal atrial fibrillation (principal)
CPT/HCPCS: 36415; 85610

== ENCOUNTER → 2023-09-09 11:51 | Outpatient (ROUT) | payer MEDICARE, OTHER, SELFPAY ==
[2023-09-09 12:14] LABS: Prothrombin Time 62.7 SECONDS (9.4-12.5)
[2023-09-09 12:32] LABS: INR 5.4 (0.9-1.3)
== END ==
PROVIDERS: PCP Family Medicine; Visit Provider Family Medicine
DX: I48.0 Paroxysmal atrial fibrillation (principal)
CPT/HCPCS: 85610

== ENCOUNTER → 2023-09-25 07:58 | Outpatient (CLI) | payer MEDICARE, OTHER, SELFPAY ==
--- NOTE | 2023-09-25 07:59 | DI.ECHO.S_ITS ---
[facility] : : [address] : : [place] : : [id number] : : Phone: [phone] Echocardiogram Report + + :Name: DREW FERMIN Study Date: 09/25/2023 Height: 70 in : :[facility] ReadingLocation: Weight: 180 lb : : Gender: Male BSA: 2.0 m2 : :: 1940 Age: 83 yrs BP: 119/99 mmHg: :Reason For Study: CHRONIC DIASTOLIC CONGESTIVE HEART FAILURE : :Ordering Physician: : :ARDEN LEWIS Performed By: Yaya Vigil : :Referring: ARDEN LEWIS : + + Interpretation Summary Borderline concentric left ventricular hypertrophy with ejection fraction 60- 65%. Moderate to severely dilated right ventricle with mildly reduced right ventricular systolic function. Severe biatrial enlargement. Mild aortic stenosis. The peak aortic velocity is 1.8 m/sec. Moderate mitral regurgitation. Severe tricuspid regurgitation. Severe pulmonary hypertension. The right ventricular systolic pressure is estimated to be at least 78.9 mmHg based on an estimated right atrial pressure of 3 mm Hg. Comparison is made with the echocardiogram of 05/04/2022, tricuspid regurgitation and pulmonary hypertension have worsen. Procedure: A two-dimensional transthoracic echocardiogram with color flow and Doppler was performed. The study quality was technically adequate. Comparison is made with the echocardiogram of 05/04/2022. The patient was in normal sinus rhythm during the exam. The heart rate ranged between 56-62 bpm during the study. Left Ventricle: The left ventricle is normal in size. There is borderline concentric left ventricular hypertrophy. The ejection fraction is estimated to be 60-65%. There are no focal wall motion abnormalities. Right Ventricle: The right ventricle is moderate to severely dilated. There is a pacemaker lead in the right ventricle. Right ventricular systolic function is mildly reduced. Atria: There is severe biatrial enlargement. There is a catheter/pacemaker lead seen in the right atrium. The interatrial septum grossly appears intact with no obvious evidence for an atrial septal defect. Mitral Valve: The mitral valve is normal. There is no mitral valve stenosis. There is moderate mitral regurgitation. Aortic Valve: The aortic valve is trileaflet. The aortic valve is mildly calcified. There is mild aortic stenosis. The peak aortic velocity is 1.8 m/sec. The aortic valve mean gradient is 7.9 mmHg. The calculated aortic valve area is 1.7 cm2. No aortic regurgitation is present. Tricuspid Valve: The tricuspid valve is not well visualized, but is grossly normal. There is no tricuspid stenosis. There is severe tricuspid regurgitation. There is severe pulmonary hypertension. The right ventricular systolic pressure is estimated to be at least 78.9 mmHg based on an estimated right atrial pressure of 3 mm Hg. Pulmonic Valve: The pulmonic valve is not well visualized. There is no pulmonic valvular stenosis. There is a trace or physiologic amount of pulmonic regurgitation. Great Vessels: The aortic root is normal size. The dimensions of the ascending aorta are normal. The IVC is of normal diameter and collapses greater than 50% with a sniff. This suggests a low right atrial pressure of 3 mm Hg. Pericardium/ Pleura There is no pericardial effusion. There is no pleural effusion. MMode/2D Measurements & Calculations LVIDd: 4.6 cm LVOT diam: 2.3 cm LVIDs: 2.9 cm Ao root diam: 3.2 cm FS: 38.0 % asc Aorta Diam: 3.2 cm IVSd: 1.1 cm LVPWd: 1.2 cm LV pena. diameter/BSA (cm/m^2): 2.3 LV sys. diameter/BSA (cm/m^2): 1.4 LA A2 area: 34.6 cm2 RA long axis: 7.4 cm LA A4 area: 35.3 cm2 RA area: 38.0 cm2 LA length (vol): 7.6 cm RA vol: 166.1 ml LA vol: 136.8 ml RA : 83.2 ml/m2 LA vol index: 68.5 ml/m2 IVC diam: 1.7 cm RVD1 (basal): 5.6 cm RVD2 (mid): 4.5 cm TAPSE: 1.7 cm Doppler Measurements & Calculations Ao V2 max: 179.1 cm/sec LVOT Max Juan: 74.5 cm/sec Ao V2 mean: 133.8 cm/sec LV V1 max P.2 mmHg Ao max P.8 mmHg LV V1 VTI: 14.0 cm Ao mean P.9 mmHg CHEPE(I,D): 1.7 cm2 Ao V2 VTI: 33.6 cm CHEPE(V,D): 1.7 cm2 sev ratio: 0.42 CHEPE indexed to BSA (cm^2/m^2): 0.84 MV E max juan: 86.5 cm/sec TR max juan: 435.6 cm/sec MV A max juan: 19.8 cm/sec TR max P.9 mmHg MV E/A: 4.4 PA V2 max: 172.4 cm/sec Med Peak E' Juan: 7.5 cm/sec PA V2 mean: 108.8 cm/sec E/E' med: 11.5 PA mean P.5 mmHg Lat Peak E' Juan: 12.2 cm/sec PA pr(Accel): 53.3 mmHg E/E' lat: 7.1 E/e' average: 9.3 MV dec time: 0.26 sec SV(LVOT): 56.5 ml Electronically signed by: Arden Escamilla on Reading Physician:09/26/2023 12:19 PM
== END ==
PROVIDERS: PCP Family Medicine; Referring Provider Internal Medicine Interventional Cardiology; Visit Provider Internal Medicine Interventional Cardiology
DX: I08.3 Combined rheumatic disorders of mitral, aortic and tricuspid valves (principal); I50.32 Chronic diastolic (congestive) heart failure; I27.20 Pulmonary hypertension, unspecified; Z95.0 Presence of cardiac pacemaker
CPT/HCPCS: 93306

== ENCOUNTER → 2023-09-27 13:37 | Outpatient (ROUT) | payer MEDICARE, OTHER, SELFPAY ==
[2023-09-27 15:40] LABS: INR 2.8 (0.9-1.3); Prothrombin Time 32.1 SECONDS (9.4-12.5)
== END ==
PROVIDERS: PCP Family Medicine; Visit Provider Family Medicine
DX: Z79.01 Long term (current) use of anticoagulants (principal)
CPT/HCPCS: 85610

== ENCOUNTER → 2023-10-11 12:17 | Outpatient (ROUT) | payer MEDICARE, OTHER, SELFPAY ==
[2023-10-11 12:35] LABS: INR 2.4 (0.9-1.3); Prothrombin Time 27.4 SECONDS (9.4-12.5)
== END ==
PROVIDERS: PCP Family Medicine; Visit Provider Family Medicine
DX: I48.20 Chronic atrial fibrillation, unspecified (principal); Z79.01 Long term (current) use of anticoagulants
CPT/HCPCS: 85610

== ENCOUNTER → 2023-10-28 10:02 | Outpatient (CLI) | payer MEDICARE, OTHER, SELFPAY ==
[2023-10-28 10:51] LABS: Influenza A - CEPHEID Flu A NEGATIVE (NEGATIVE); Influenza B - CEPHEID Flu B NEGATIVE (NEGATIVE); Respiratory Syncytial Virus Negative (Negative)
[2023-10-28 11:00] LABS: COVID-19 CEPHEID 4-PLEX PCR POSITIVE (Negative)
[2023-10-28 12:06] LABS: BUN Creatinine Ratio 22.3 (6-22); Blood Urea Nitrogen 29 mg/dL (9-20); Calcium 8.5 mg/dL (8.4-10.2); Carbon Dioxide 28 mmol/L (22-32); Chloride 101 mmol/L (98-107); Estimated Glomerular Filt Rate 55 mL/min (>60); Glucose 93 mg/dL (80-110); HEMOLYSIS 28 (0-50); Potassium 4.6 mmol/L (3.4-5.1); Sodium 135 mmol/L (137-145)
== END ==
PROVIDERS: PCP Family Medicine; Visit Provider Nurse Practitioner Family
DX: R05.9 Cough, unspecified (principal); U07.1 COVID-19
CPT/HCPCS: 0241U; 80048

== ENCOUNTER → 2023-11-15 13:28 | Outpatient (ROUT) | payer MEDICARE, OTHER, SELFPAY ==
[2023-11-15 13:39] LABS: Prothrombin Time 60.5 SECONDS (9.4-12.5)
[2023-11-15 15:06] LABS: INR 5.2 (0.9-1.3)
== END ==
PROVIDERS: PCP Family Medicine; Visit Provider Family Medicine
DX: Z79.01 Long term (current) use of anticoagulants (principal); I48.20 Chronic atrial fibrillation, unspecified
CPT/HCPCS: 85610

== ENCOUNTER → 2023-12-05 10:15 | Outpatient (ROUT) | payer MEDICARE, OTHER, SELFPAY ==
[2023-12-05 10:29] LABS: INR 3.8 (0.9-1.3); Prothrombin Time 44.2 SECONDS (9.4-12.5)
== END ==
PROVIDERS: PCP Family Medicine; Visit Provider Family Medicine
DX: I48.20 Chronic atrial fibrillation, unspecified (principal); Z79.01 Long term (current) use of anticoagulants
CPT/HCPCS: 85610

== ENCOUNTER → 2023-12-20 11:29 | Outpatient (ROUT) | payer MEDICARE, OTHER, SELFPAY ==
[2023-12-20 11:47] LABS: INR 4.5 (0.9-1.3); Prothrombin Time 52.8 SECONDS (9.4-12.5)
== END ==
PROVIDERS: PCP Family Medicine; Visit Provider Family Medicine
DX: I48.20 Chronic atrial fibrillation, unspecified (principal); Z79.01 Long term (current) use of anticoagulants
CPT/HCPCS: 85610

== ENCOUNTER → 2024-01-05 12:29 | Outpatient (ROUT) | payer MEDICARE, OTHER, SELFPAY ==
[2024-01-05 12:36] LABS: INR 4.4 (0.9-1.3); Prothrombin Time 50.8 SECONDS (9.4-12.5)
== END ==
PROVIDERS: PCP Family Medicine; Visit Provider Family Medicine
DX: I48.20 Chronic atrial fibrillation, unspecified (principal); Z79.01 Long term (current) use of anticoagulants
CPT/HCPCS: 85610

== ENCOUNTER → 2024-01-24 10:31 | Outpatient (ROUT) | payer MEDICARE, OTHER, SELFPAY ==
[2024-01-24 10:48] LABS: Prothrombin Time 35.4 SECONDS (9.4-12.5)
== END ==
PROVIDERS: PCP Family Medicine; Visit Provider Family Medicine
DX: I48.20 Chronic atrial fibrillation, unspecified (principal); Z79.01 Long term (current) use of anticoagulants
CPT/HCPCS: 85610

== ENCOUNTER → 2024-02-07 11:50 | Outpatient (ROUT) | payer MEDICARE, OTHER, SELFPAY ==
[2024-02-07 11:58] LABS: INR 2.7 (0.9-1.3); Prothrombin Time 31.5 SECONDS (9.4-12.5)
== END ==
PROVIDERS: PCP Family Medicine; Visit Provider Family Medicine
DX: I48.20 Chronic atrial fibrillation, unspecified (principal); Z79.01 Long term (current) use of anticoagulants
CPT/HCPCS: 85610

== ENCOUNTER → 2024-02-21 12:09 | Outpatient (ROUT) | payer MEDICARE, OTHER, SELFPAY ==
[2024-02-21 12:20] LABS: INR 2.2 (0.9-1.3); Prothrombin Time 25.1 SECONDS (9.4-12.5)
== END ==
PROVIDERS: PCP Family Medicine; Visit Provider Family Medicine
DX: Z79.01 Long term (current) use of anticoagulants (principal); I48.20 Chronic atrial fibrillation, unspecified
CPT/HCPCS: 85610

== ENCOUNTER → 2024-02-28 12:21 | Outpatient (ROUT) | payer MEDICARE, OTHER, SELFPAY ==
[2024-02-28 12:33] LABS: INR 3.1 (0.9-1.3); Prothrombin Time 34.4 SECONDS (9.4-12.5)
== END ==
PROVIDERS: PCP Family Medicine; Visit Provider Family Medicine
DX: I48.20 Chronic atrial fibrillation, unspecified (principal); Z79.01 Long term (current) use of anticoagulants
CPT/HCPCS: 85610

== ENCOUNTER → 2024-03-06 15:11 | Outpatient (ROUT) | payer MEDICARE, OTHER, SELFPAY ==
[2024-03-06 15:24] LABS: INR 2.5 (0.9-1.3); Prothrombin Time 28.1 SECONDS (9.4-12.5)
== END ==
PROVIDERS: Visit Provider Family Medicine
DX: I48.20 Chronic atrial fibrillation, unspecified (principal); Z79.01 Long term (current) use of anticoagulants
CPT/HCPCS: 85610

== ENCOUNTER → 2024-03-07 15:43 | Outpatient (CLI) | payer MEDICARE, OTHER, SELFPAY ==
--- NOTE | 2024-03-07 15:45 | DI.RAD.S_ITS ---
PROCEDURE: XR CHEST 2V INDICATIONS: COUGH TECHNIQUE: 2 views of the chest were acquired. COMPARISON: [facility], CR, XR CHEST 2V, 12/28/2022, 11:41. FINDINGS: Surgical changes and devices: Left chest wall pacemaker leads are in the region of right ventricle unchanged from prior study. Lungs and pleura: There is pulmonary vascular congestion. Small right infrahilar infiltrate cannot be excluded. No pleural effusion or pneumothorax. Hyperinflation is seen. Mediastinum: Mediastinal contours are normal. Heart size is enlarged. Bones and chest wall: No suspicious bony abnormalities. Soft tissues appear unremarkable. IMPRESSION: Cardiomegaly and congestion. Cannot rule out small right infrahilar infiltrate. No pleural effusion or pneumothorax. COPD. Dictated by: Roshan Lewis M.D. on 03/07/2024 at 17:13 Approved by: Roshan Lewis M.D. on 03/07/2024 at 17:15
== END ==
PROVIDERS: PCP Family Medicine; Referring Provider Family Medicine; Visit Provider Family Medicine
DX: R05.1 Acute cough (principal); R53.83 Other fatigue; I51.7 Cardiomegaly; R09.89 Other specified symptoms and signs involving the circulatory and respiratory systems; J44.9 Chronic obstructive pulmonary disease, unspecified
CPT/HCPCS: 71046

== ENCOUNTER → 2024-03-21 07:53 | Outpatient (CLI) | payer MEDICARE, OTHER, SELFPAY ==
--- NOTE | 2024-03-21 07:55 | DI.ECHO.S_ITS ---
[facility] : : [address] : : [place] : : [id number] : : Phone: [phone] Echocardiogram Report + :Name: DREW FERMIN Study Date: 03/21/2024 Height: 70.5 in: :[facility] ReadingLocation: Weight: 182 lb : : Gender: Male BSA: 2.0 m2 : :: 1940 Age: 83 yrs BP: 128/81 mmHg: :Reason For Study: MITRAL EDER : :Ordering Physician: ANTONIA SINCLAIR Performed By: Lauren Overton : :Referring: ARDEN SPRINGER M.D. : + Interpretation Summary The left ventricle is normal in size. The ejection fraction is estimated to be 55-60%. There has been no significant change since the previous exam. Diastolic function could not be accurately assessed due to confounding valvular disease. The right ventricle is moderate to severely dilated. Right ventricular systolic function is mildly reduced. The interventricular septum is flattened, consistent with a right ventricular pressure/volume condition. The right ventricular systolic pressure is estimated to be at least 64 mmHg based on an estimated right atrial pressure of 3 mm Hg. The left atrium is severely dilated. The right atrium is severely dilated. There is mild to moderate mitral regurgitation. There are multiple regurgitant jets present. A mitral valve clip is present. Compared to the prior echo study, there has been a decrease in the severity of mitral regurgitation. There is moderate to severe tricuspid regurgitation. Procedure: A two-dimensional transthoracic echocardiogram with color flow and Doppler was performed. The study quality was technically adequate. Comparison is made with the echocardiogram of 09/25/2023. The patient has a paced rhythm. The heart rate ranged between 60-61 bpm during the study. Left Ventricle: The left ventricle is normal in size. There is mild concentric left ventricular hypertrophy. The ejection fraction is estimated to be 55-60%. There has been no significant change since the previous exam. The interventricular septum is flattened, consistent with a right ventricular pressure/volume condition. Diastolic function could not be accurately assessed due to confounding valvular disease. Right Ventricle: There is a pacemaker lead in the right ventricle. The right ventricle is moderate to severely dilated. Right ventricular systolic function is mildly reduced. Atria: The left atrium is severely dilated. The right atrium is severely dilated. There is no Doppler evidence for an interatrial shunt. Mitral Valve: The mitral valve leaflets appear mildly thickened, but open well. A mitral valve clip is present. There is mild to moderate mitral regurgitation. There are multiple regurgitant jets present. Compared to the prior echo study, there has been a decrease in the severity of mitral regurgitation. Aortic Valve: The aortic valve is trileaflet. The aortic valve is moderately calcified. The peak aortic velocity is 2.3 m/sec. The aortic valve mean gradient is 13 mmHg. The calculated aortic valve area is 1.2 cm2. No aortic regurgitation is present. Tricuspid Valve: The tricuspid valve leaflets are thickened and/or calcified, but open well. There is moderate to severe tricuspid regurgitation. The right ventricular systolic pressure is estimated to be at least 64 mmHg based on an estimated right atrial pressure of 3 mm Hg. Pulmonic Valve: The pulmonic valve leaflets are thin and pliable; valve motion is normal. There is mild pulmonic regurgitation. Great Vessels: The aortic root is normal size. The dimensions of the ascending aorta are normal. Mildly dilated aortic arch. The IVC is of normal diameter and collapses greater than 50% with a sniff. This suggests a low right atrial pressure of 3 mm Hg. Pericardium/ Pleura There is no pericardial effusion. There is no pleural effusion. MMode/2D Measurements & Calculations LVIDd: 4.4 cm LVOT diam: 2.2 cm LVIDs: 2.8 cm Ao root diam: 3.1 cm FS: 35.6 % asc Aorta Diam: 3.2 cm IVSd: 1.00 cm Ao Arch Diam (Prox Trans): 3.4 cm LVPWd: 1.1 cm LV pena. diameter/BSA (cm/m^2): 2.2 LV sys. diameter/BSA (cm/m^2): 1.4 LA A2 area: 32.1 cm2 RA long axis: 7.3 cm LA A4 area: 29.1 cm2 RA area: 41.5 cm2 LA length (vol): 7.1 cm RA vol: 200.2 ml LA vol: 111.7 ml RA : 99.2 ml/m2 LA vol index: 55.3 ml/m2 IVC diam: 1.9 cm RVD1 (basal): 5.5 cm RVD2 (mid): 5.1 cm TAPSE: 1.6 cm Doppler Measurements & Calculations Ao V2 max: 234.1 cm/sec LVOT Max Juan: 74.9 cm/sec Ao V2 mean: 172.6 cm/sec LV V1 max P.2 mmHg Ao max P.9 mmHg LV V1 VTI: 13.7 cm Ao mean P.0 mmHg CHEPE(I,D): 1.1 cm2 Ao V2 VTI: 45.6 cm CHEPE(V,D): 1.2 cm2 sev ratio: 0.30 CHEPE indexed to BSA (cm^2/m^2): 0.54 MV E max juan: 142.2 cm/sec TR max juan: 389.5 cm/sec MV A max juan: 0.72 cm/sec TR max P.7 mmHg MV E/A: 196.7 PA V2 max: 92.8 cm/sec Med Peak E' Juan: 5.1 cm/sec PA V2 mean: 64.3 cm/sec E/E' med: 28.0 PA mean P.8 mmHg Lat Peak E' Juan: 8.5 cm/sec PA pr(Accel): 44.7 mmHg E/E' lat: 16.8 E/e' average: 22.4 MV dec time: 0.48 sec MVA(VTI): 1.1 cm2 MV V2 mean: 76.3 cm/sec SV(LVOT): 49.9 ml MV mean P.3 mmHg MV V2 VTI: 43.9 cm Reading Physician:11:03 AM
== END ==
LOC: ECHO 07:55
PROVIDERS: PCP Family Medicine
DX: I08.1 Rheumatic disorders of both mitral and tricuspid valves (principal); Z95.0 Presence of cardiac pacemaker
CPT/HCPCS: 93306

== ENCOUNTER → 2024-04-05 11:57 | Outpatient (ROUT) | payer MEDICARE, OTHER, SELFPAY ==
[2024-04-05 12:14] LABS: INR 4.2 (0.9-1.3); Prothrombin Time 45.9 SECONDS (9.4-12.5)
== END ==
PROVIDERS: PCP Family Medicine; Visit Provider Family Medicine
DX: I48.20 Chronic atrial fibrillation, unspecified (principal); Z79.01 Long term (current) use of anticoagulants
CPT/HCPCS: 85610

== ENCOUNTER → 2024-05-03 11:48 | Outpatient (ROUT) | payer MEDICARE, OTHER, SELFPAY ==
[2024-05-03 11:58] LABS: INR 2.2 (0.9-1.3)
== END ==
PROVIDERS: PCP Family Medicine; Visit Provider Family Medicine
DX: I48.20 Chronic atrial fibrillation, unspecified (principal); Z79.01 Long term (current) use of anticoagulants
CPT/HCPCS: 85610

== ENCOUNTER → 2024-05-17 12:35 | Outpatient (ROUT) | payer MEDICARE, OTHER, SELFPAY ==
[2024-05-17 12:46] LABS: Prothrombin Time 21.8 SECONDS (9.4-12.5)
== END ==
PROVIDERS: PCP Family Medicine; Visit Provider Family Medicine
DX: I48.20 Chronic atrial fibrillation, unspecified (principal); Z79.01 Long term (current) use of anticoagulants
CPT/HCPCS: 85610

== ENCOUNTER → 2024-06-15 09:55 | Outpatient (ROUT) | payer MEDICARE, OTHER, SELFPAY ==
[2024-06-15 10:11] LABS: INR 2.3 (0.9-1.3)
== END ==
PROVIDERS: PCP Family Medicine; Visit Provider Family Medicine
DX: I48.20 Chronic atrial fibrillation, unspecified (principal); Z79.01 Long term (current) use of anticoagulants
CPT/HCPCS: 85610

== ENCOUNTER 2024-07-04 10:15 | Outpatient (RCR) | payer MEDICARE, OTHER, SELFPAY | END 2024-07-04 12:15 | LOC: CAR 10:15 | PROVIDERS: PCP Family Medicine; Referring Provider Internal Medicine Interventional Cardiology; Visit Provider Internal Medicine Interventional Cardiology | DX: Z98.890 Other specified postprocedural states (principal); Z95.818 Presence of other cardiac implants and grafts | CPT/HCPCS: 93798 ==

== ENCOUNTER → 2024-07-13 13:06 | Outpatient (ROUT) | payer MEDICARE, OTHER, SELFPAY ==
[2024-07-13 13:19] LABS: INR 2.4 (0.9-1.3); Prothrombin Time 26.6 SECONDS (9.4-12.5)
== END ==
PROVIDERS: PCP Family Medicine; Visit Provider Family Medicine
DX: I48.20 Chronic atrial fibrillation, unspecified (principal); Z79.01 Long term (current) use of anticoagulants
CPT/HCPCS: 85610

== ENCOUNTER → 2024-07-17 12:31 | Outpatient (CLI) | payer MEDICARE, OTHER, SELFPAY ==
--- NOTE | 2024-07-17 12:34 | DI.ECHO.S_ITS ---
[facility]+ [facility] : : [address] : : [place] : : [address] : : Phone: [phone] Echocardiogram Report + + :Name: DREW FERMIN Study Date: 07/17/2024 Height: 70.5 in: :[facility]ospital ReadingLocation: Weight: 181 lb : : Gender: Male BSA: 2.0 m2 : :: 1940 Age: 83 yrs BP: 114/79 mmHg: :Reason For Study: CHRONIC HEART FAILURE : :Ordering Physician: : :ARDEN LEWIS Performed By: Lauren Overton : :Referring: ARDEN LEWIS : + + Interpretation Summary Indeterminant rhythm with wide QRS complexes and regular rate of 60 bpm. Suspect atrial fibrillation with RV pacing. Normal LV size and wall thickness. There is septal dyssynchrony which in the right setting could be due to RV pacing. There is basal inferior akinesis which in the right clinical setting could be due to prior infarction in PDA territory otherwise normal wall motion and LV systolic function. Ejection fraction is 50-55% Severe RV enlargement with moderately reduced RV systolic function (TAPSE 1.6 cm). D-shaped LV in systole and diastole consistent with RV pressure overload. Massive right atrial enlargement and severe left atrial enlargement. Mitral valve is repaired via clip with mild central associated regurgitation. Transmitral gradient in diastole is only 2 mmHg. ' Aortic valve leaflets are mildly thickened and calcified and demonstrates mildly reduced leaflet excursion. There is a pacing lead traversing the tricuspid valve with moderate-severe central associated tricuspid regurgitation. Estimated PA systolic pressure 74 mmHg assuming right atrial pressure of 8 mmHg. Compared to prior echo March 21, 2024. LA volume jamal from 94 to 135 mL. Tricuspid regurgitation looks worse with hepatic vein flow reversal observed on some beats. This observation is consistent with severe tricuspid regurgitation. Procedure: A two-dimensional transthoracic echocardiogram with color flow and Doppler was performed. The study quality was technically adequate. Comparison is made with the echocardiogram of 03/21/2024. The patient has a paced rhythm. The heart rate ranged between 60 bpm during the study. Left Ventricle: The left ventricle is normal in size and wall thickness. The ejection fraction is estimated to be 50-55%. The interventricular septum is flattened, consistent with a right ventricular pressure/volume condition. Diastolic function could not be accurately assessed due to paced rhythm. Right Ventricle: The right ventricle is severely dilated. There is a pacemaker lead in the right ventricle. Right ventricular systolic function is moderately reduced. Atria: The left atrium is severely dilated. The right atrium is severely dilated. There is a catheter/pacemaker lead seen in the right atrium. There is no Doppler evidence for an interatrial shunt. Mitral Valve: A mitral valve clip is present. The mitral valve leaflets appear mildly thickened, but open well. There is mild to moderate mitral regurgitation. There are multiple regurgitant jets present. Aortic Valve: The aortic valve is moderately calcified. The aortic valve is trileaflet. The calculated aortic valve area is 1.4 cm2. The aortic valve mean gradient is 7.8 mmHg. No aortic regurgitation is present. Tricuspid Valve: The tricuspid valve leaflets are thickened and/or calcified, but open well. There is moderate to severe tricuspid regurgitation. The right ventricular systolic pressure is estimated to be at least 74 mmHg based on an estimated right atrial pressure of 8 mm Hg. Pulmonic Valve: The pulmonic valve leaflets are thin and pliable; valve motion is normal. There is mild pulmonic regurgitation. Multiple jets. Great Vessels: The aortic root is normal size. The dimensions of the ascending aorta are normal. The IVC is dilated (diameter is greater than 2.1 cm) yet it collapses greater than 50% with a sniff. This suggests a right atrial pressure of 8 mm Hg. Pericardium/ Pleura There is no pericardial effusion. There is no pleural effusion. MMode/2D Measurements & Calculations LVIDd: 4.8 cm LVOT diam: 2.3 cm LVIDs: 3.2 cm Ao root diam: 3.2 cm FS: 34.0 % asc Aorta Diam: 3.3 cm IVSd: 1.0 cm Ao Arch Diam (Prox Trans): 2.6 cm LVPWd: 0.85 cm LV pena. diameter/BSA (cm/m^2): 2.4 LV sys. diameter/BSA (cm/m^2): 1.6 LA A2 area: 37.0 cm2 RA long axis: 7.4 cm LA A4 area: 31.4 cm2 RA area: 32.9 cm2 LA length (vol): 7.3 cm RA vol: 124.0 ml LA vol: 135.6 ml RA : 61.5 ml/m2 LA vol index: 67.3 ml/m2 IVC diam: 2.3 cm RVD1 (basal): 4.9 cm RVD2 (mid): 4.9 cm TAPSE: 1.6 cm Doppler Measurements & Calculations Ao V2 max: 184.2 cm/sec LVOT Max Juan: 62.0 cm/sec Ao V2 mean: 126.4 cm/sec LV V1 max P.5 mmHg Ao max P.4 mmHg LV V1 VTI: 11.2 cm Ao mean P.8 mmHg CHEPE(I,D): 1.4 cm2 Ao V2 VTI: 34.6 cm CHEPE(V,D): 1.4 cm2 sev ratio: 0.32 CHEPE indexed to BSA (cm^2/m^2): 0.67 MV E max juan: 122.9 cm/sec TR max juan: 406.5 cm/sec MV A max juan: 0.66 cm/sec TR max P.1 mmHg MV E/A: 185.1 PA V2 max: 117.0 cm/sec Med Peak E' Juan: 4.8 cm/sec PA V2 mean: 79.7 cm/sec E/E' med: 25.6 PA mean P.9 mmHg Lat Peak E' Juan: 7.2 cm/sec PA pr(Accel): 45.6 mmHg E/E' lat: 17.0 E/e' average: 21.3 MV dec time: 0.41 sec MVA(VTI): 1.3 cm2 MR ERO: 0.10 cm2 MV V2 mean: 69.7 cm/sec MR PISA: 1.6 cm2 MV mean P.4 mmHg MR flow rate: 44.0 cm3/sec MV V2 VTI: 36.1 cm MR PISA radius: 0.51 cm SV(LVOT): 46.7 ml Electronically signed by: Sana Simons M.D. on Reading Physician:07/19/2024 11:33 AM
== END ==
LOC: ECHO 12:33
PROVIDERS: PCP Family Medicine; Referring Provider Internal Medicine Interventional Cardiology; Visit Provider Internal Medicine Interventional Cardiology
DX: I50.32 Chronic diastolic (congestive) heart failure (principal); I08.1 Rheumatic disorders of both mitral and tricuspid valves; Z95.0 Presence of cardiac pacemaker
CPT/HCPCS: 93306

== ENCOUNTER 2024-08-07 10:17 | Emergency (ER) | payer MEDICARE, OTHER, SELFPAY ==
[2024-08-07] VITALS (8 sets, daily range): BP systolic 112–146; BP diastolic 71–89; PULSE 60; RESP 14–24; TEMP 36.3; O2SAT 92–96; BMI 25.6
--- NOTE | 2024-08-07 10:54 | DI.RAD.S_ITS ---
PROCEDURE: XR CHEST 1V INDICATIONS: chest pain TECHNIQUE: One view of the chest was acquired. COMPARISON: [facility], CT, CT CHEST WITH CONTRAST, 03/05/2022, 15:24. [facility], CR, XR CHEST 2V, 03/07/2024, 15:59. FINDINGS: Surgical changes and devices: Cardiac pacemaker is seen with pulse generator in the left chest. Heart valve clips. Lungs and pleura: Mild bilateral interstitial prominence. No pleural effusion or pneumothorax. Mediastinum: Cardiac silhouette is enlarged. Mild prominence of the upper right mediastinal border likely related to tortuous vessels and overlapping osseous structures. Contours appear similar to the prior CT. Bones and chest wall: No suspicious bony lesions. Overlying soft tissues appear unremarkable. IMPRESSION: Stable cardiomegaly. Mild interstitial prominence may be secondary to mild edema versus an atypical or viral pneumonia. Approved by: Murray Alvarenga M.D. on 08/07/2024 at 11:50
--- NOTE | 2024-08-07 10:57 | EKG_ITS ---
[address] [address] Test Date: 2024-08-07 Pat Name: Kavon Nuno Department: [facility] Room: Gender: Male Acid Conditioner: sanam : 1940 Requested By: Order Number: [id number] Reading MD: Blane Mas Measurements Intervals Carpio Rate: 60 P: ME: QRS: 261 QRSD: 172 T: 76 QT: 494 QTc: 494 Interpretive Statements Ventricular-paced rhythm Electronically Signed On 08-13-2024 18:54:11 PDT by Blane Mas
[2024-08-07 11:33] LABS: Add Manual Diff / Slide Review NO; Basophils Absolute Auto 0 /uL (0-100); Basophils Percent Auto 0.7 % (0-2); Eosinophils Absolute Auto 200 /uL (0-450); Eosinophils Percent Auto 3.7 % (2-4); Hemoglobin 17.8 g/dL (13.5-17.5); Lymphocytes Absolute Auto 900 /uL (1100-4500); Lymphocytes Percent Auto 14.4 % (25-40); Mean Corpuscular HGB Conc 33.6 % (30-36); Mean Corpuscular Hemoglobin 32.8 PG (26-34); Mean Corpuscular Volume 97.4 fL (80-100); Monocytes Absolute Auto 500 /uL (0-900); Monocytes Percent Auto 7.5 % (3-14); Neutrophils Absolute Auto 4500 /uL (1500-7000); Neutrophils Percent Auto 73.7 % (50-75); Platelet Count 117 X10^3/uL (150-400); Red Blood Cell Count 5.44 X10^6/uL (4.5-5.9); Red Cell Distribution Width 14.5 % (11.6-14.8); White Blood Cell Count 6.1 X10^3/uL (4.5-11.0)
[2024-08-07 11:43] LABS: INR 1.5 (0.9-1.3); Prothrombin Time 16.3 SECONDS (9.4-12.5)
[2024-08-07 11:46] LABS: PTT Partial Thromboplastin Tim 41 SECONDS (25.1-36.5)
[2024-08-07 12:10] LABS: Alanine Aminotransferase 23 IU/L (<50); Albumin 4.6 g/dL (3.5-5.0); Albumin Globulin Ratio 1.5 (1.0-2.8); Alkaline Phosphatase 56 U/L (38-126); Aspartate Aminotransferase 34 IU/L (17-59); BUN Creatinine Ratio 26.6 (6-22); Bilirubin Total 1.3 mg/dL (0.2-1.3); Blood Urea Nitrogen 29 mg/dL (9-20); Calcium 9.5 mg/dL (8.4-10.2); Carbon Dioxide 22 mmol/L (22-32); Chloride 104 mmol/L (98-107); Creatine Kinase 47 U/L (55-170); Estimated Glomerular Filt Rate > 60 mL/min (>60); Glucose 140 mg/dL (80-110); HEMOLYSIS 43 (0-50); Lipase 130 U/L (23-300); Magnesium 2.4 mg/dL (1.6-2.3); Potassium 4.3 mmol/L (3.4-5.1); Sodium 138 mmol/L (137-145); Total Protein 7.6 g/dL (6.3-8.2)
[2024-08-07 12:20] LABS: NT-proBNP (BNP-Adult 18+) 1250 pg/mL (<450); Troponin I < 0.012 ng/mL (0.01-0.034)
--- NOTE | 2024-08-07 13:22 | ED.CHESTPAIN ---
HPI - Chest Pain General Chief Complaint: Chest Pain Stated Complaint: Excruciating Pain/upper right shoulder/neck Time Seen by Provider: 08/07/24 13:16 Source: patient Mode of arrival: Family Vehicle History of Present Illness HPI narrative: 83-year-old male with history of congestive heart failure and chronic lung disease has 4 days duration of right superior trapezius area shoulder pain, worse with movement. No injury or new activities recalled. No radiation of symptoms. No fevers or chills. No recent cough. No abdominal discomfort, nausea or vomiting. No painful urination or frequency of urination. No skin rash changes. Related Data Home Medications Medication Instructions Recorded Confirmed amlodipine 5 mg tablet (Norvasc) 5 mg PO QDAY ##0 12/22/12 10/07/23 atorvastatin 10 mg tablet 10 mg PO BID 06/07/19 10/07/23 metoprolol tartrate 25 mg tablet 25 mg PO BID 06/07/19 10/07/23 Saccharomyces boulardii 250 mg 250 mg PO BID 10/07/23 10/07/23 capsule (Florastor) coenzyme Q10 100 mg capsule 200 mg PO DAILY 10/07/23 10/07/23 (CoQ-10) empagliflozin 10 mg tablet 10 mg PO DAILY 10/07/23 10/07/23 (Jardiance) furosemide 40 mg tablet 40 mg PO DAILY 10/07/23 10/07/23 kqyvojjohelp-imgixkoh-zjlsvn tablet 1 tab PO DAILY 10/07/23 10/07/23 potassium chloride 20 mEq 20 meq PO DAILY 10/07/23 10/07/23 tablet,extended release sacubitril 24 mg-valsartan 26 mg 1 tab PO BID 10/07/23 10/07/23 tablet (Entresto) warfarin 4 mg tablet 4 mg PO DAILY 10/07/23 10/07/23 Previous Rx's Medication Instructions Recorded nirmatrelvir 150 mg-ritonavir 100 See Rx Instructions PO PER PKG DIR 10/28/23 mg tablets in a dose pack #20 ea (Paxlovid) benzonatate 100 mg capsule 100 mg PO BID PRN cough #20 caps 10/29/23 methocarbamol 500 mg tablet 500 mg PO TID 7 days #21 tabs 08/07/24 Allergies Allergy/AdvReac Type Severity Reaction Status Date / Time bacitracin Allergy Verified 03/08/24 07:02 [From Neosporin ([id number])] dexamethasone Allergy Verified 03/08/24 07:02 polymyxin B Allergy Verified 03/08/24 07:02 [From Neosporin ([id number])] neomycin AdvReac Intermediate ITCHING Verified 03/08/24 07:02 Patient History Medical History (Updated 08/07/24 @ 14:45 by Freddy Delgado MD) Chronic anticoagulation History of coronary artery disease History of heart attack Surgical History (System 03/08/24 @ 07:02 by Brunilda Adamson) Hx of hernia repair History of prostate surgery Hx of heart artery stent Social History (System 03/08/24 @ 07:02 by Brunilda Adamson) marital status: household members: spouse occupational status: previously employed Smoking Status: Former smoker alcohol intake: current Smoking Status: Former smoker tobacco type: cigarettes alcohol intake frequency: a few times a month Exam Narrative Exam Narrative: GENERAL: Well-developed patient, in mild distress. HEAD: Atraumatic. Normocephalic. EYES: Pupils equal round and reactive. Extraocular motions intact. No scleral icterus. No injection or drainage. ENT: Nose without bleeding, purulent drainage. Throat without erythema, tonsillar hypertrophy or exudate. Airway patent. NECK: Trachea midline. Non tender CARDIOVASCULAR: Regular rate and rhythm without murmurs, gallops, or rubs. RESPIRATORY: Clear to auscultation. Breath sounds equal bilaterally. No wheezes, rales, or rhonchi. GASTROINTESTINAL: Abdomen soft, non-tender, nondistended. EXTREMITIES: No edema or joint tenderness. Has tenderness right superior trapezius that reproduces his symptoms. No tenderness along the right anterior shoulder or along clavicle or AC joint. Normal range of motion right shoulder. BACK: Nontender without deformity or crepitance. No flank tenderness. NEURO: AOx3. Motor functions grossly nonfocal SKIN: No rash or erythema of visible areas Initial Vital Signs Initial Vital Signs: Vital Signs Temperature 97.3 F L 08/07/24 10:56 Pulse Rate 60 08/07/24 10:56 Respiratory Rate 17 08/07/24 10:56 Blood Pressure 140/89 08/07/24 10:56 Pulse Oximetry 92 08/07/24 10:56 Oxygen Delivery Method Room Air 08/07/24 10:56 Course Orders Ordered: Discontinued Medications Aspirin (Aspirin 81 Mg Chew Tab) 324 mg PO NOW ONE Stop: 08/07/24 10:55 Last Admin: 08/07/24 11:31 Dose: Not Given Documented By: MYLENE Methocarbamol (Methocarbamol 500 Mg Tablet) 500 mg PO NOW ONE Stop: 08/07/24 14:48 Last Admin: 08/07/24 14:54 Dose: 500 mg Documented By: YNES Vital Signs Vital signs: Vital Signs - 8 hr 08/07/24 10:56 08/07/24 12:36 08/07/24 12:39 Temperature 97.3 F L Pulse Rate 60 60 Respiratory Rate 17 Blood Pressure 140/89 139/79 Pulse Oximetry 92 95 Oxygen Delivery Method Room Air 08/07/24 12:39 Temperature Pulse Rate 60 Respiratory Rate 14 Blood Pressure Pulse Oximetry 95 Oxygen Delivery Method MDM - Chest Pain Lab Data Attestation: I reviewed the patient's lab results. Lab results narrative: White blood cell count 6100, hemoglobin 17.8, platelets [id number]. Glucose 140. BUN 29 with creatinine 1.09. Electrolytes unremarkable. Troponin negative/unmeasurable. BNP 1250 elevated. 08/07/24 11:23 08/07/24 11:23 Labs: Lab Results 08/07/24 Range/Units 11:23 WBC 6.1 (4.5-11.0) X10^3/uL RBC 5.44 (4.5-5.9) X10^6/uL Hgb 17.8 H (13.5-17.5) g/dL Hct 53.0 (41-53) % MCV 97.4 (80-100) fL MCH 32.8 (26-34) PG MCHC 33.6 (30-36) % RDW 14.5 (11.6-14.8) % Plt Count 117 L (150-400) X10^3/uL Neut % (Auto) 73.7 (50-75) % Lymph % (Auto) 14.4 L (25-40) % Harding % (Auto) 7.5 (3-14) % Eos % (Auto) 3.7 (2-4) % Baso % (Auto) 0.7 (0-2) % Neut # (Auto) 4500 (2505-8758) /uL Lymph # (Auto) 900 L (3136-8999) /uL Harding # (Auto) 500 (0-900) /uL Eos # (Auto) 200 (0-450) /uL Baso # (Auto) 0 (0-100) /uL PT 16.3 H (9.4-12.5) SECONDS INR 1.5 H (0.9-1.3) APTT 41 H (25.1-36.5) SECONDS Sodium 138 (137-145) mmol/L Potassium 4.3 (3.4-5.1) mmol/L Chloride 104 (98-107) mmol/L Carbon Dioxide 22 (22-32) mmol/L BUN 29 H (9-20) mg/dL Creatinine 1.09 (0.66-1.25) mg/dL Estimated GFR > 60 (>60) mL/min BUN/Creatinine Ratio 26.6 H (6-22) Glucose 140 H (80-110) mg/dL Calcium 9.5 (8.4-10.2) mg/dL Magnesium 2.4 H (1.6-2.3) mg/dL Total Bilirubin 1.3 (0.2-1.3) mg/dL AST 34 (17-59) IU/L ALT 23 (<50) IU/L Alkaline Phosphatase 56 (38-126) U/L Total Creatine Kinase 47 L (55-170) U/L Troponin I < 0.012 (0.01-0.034) ng/mL NT-Pro-B Natriuret Pep 1250 H (<450) pg/mL Total Protein 7.6 (6.3-8.2) g/dL Albumin 4.6 (3.5-5.0) g/dL Globulin 3.0 (1.7-4.1) g/dL Albumin/Globulin Ratio 1.5 (1.0-2.8) Lipase 130 (23-300) U/L ECG Data Attestation: I personally reviewed and interpreted this ECG as follows: Interpretation: Ventricular paced rhythm with 60 beats per minute ventricular response. QRS 172, QTC 494. MDM Narrative Medical decision making narrative: 83-year-old male with right superior shoulder discomfort, worse with movement, reproduced on palpation superior trapezius, likely superior trapezius strain. EKG and chest x-ray ordered from triage, negative studies. Lab testing ordered from triage also negative. Patient would like trial of muscle relaxant. Oral Robaxin/methocarbamol dose now, prescription sent to his pharmacy. He is not want any further workup for now. He will follow up with his regular provider if not improving in the next couple of days. Return precautions discussed. Home with family. Discharge Plan Departure Patient Disposition: Home Clinical Impression: Strain of right trapezius muscle Activity Restrictions/Additional Instructions: Right upper trapezius region pain worse with movement for the last 4 days. History of chronic lung and heart disease, prompting triage nurse to send number of studies including chest x-ray and EKG. EKG shows ventricular paced rhythm. Chest x-ray showed no acute changes. EKG showed paced rhythm. Labs not suggestive of heart attack at this time. On examination you had tenderness reproducible to your superior right trapezius, likely trapezius strain by clinical examination. Trial of muscle relaxant with Robaxin/methocarbamol, 1st oral dose given now, further prescription sent to your pharmacy. Take muscle relaxant medications as prescribed. Return to this/nearest emergency department for any change worsening symptoms or any concerns prior. Recheck symptoms with your regular doctor if not improving in the next 2-3 days. Return to this/nearest emergency department for any change worsening symptoms or any concerns prior. Prescriptions: New methocarbamol 500 mg tablet 500 mg PO TID 7 Days Qty: 21 0RF No Action amlodipine [Norvasc] 5 MG tablet 5 mg PO QDAY Qty: 0 Paxlovid 150-100 mg tablets,dose pack See Rx Instructions PO PER PKG DIR Qty: 20 0RF Rx Instructions: PO PER PKG DIR benzonatate 100 mg capsule 100 mg PO BID PRN (Reason: cough) Qty: 20 0RF atorvastatin 10 mg Tablet 10 mg PO BID metoprolol tartrate 25 mg Tablet 25 mg PO BID bzsnypottjxp-ucbjotxe-wianal Tablet 1 tab PO DAILY coenzyme Q10 [CoQ-10] 100 mg capsule 200 mg PO DAILY furosemide 40 mg tablet 40 mg PO DAILY Saccharomyces boulardii [Florastor] 250 mg capsule 250 mg PO BID Jardiance 10 mg tablet 10 mg PO DAILY potassium chloride 20 mEq tablet extended release 20 meq PO DAILY warfarin 4 mg tablet 4 mg PO DAILY Entresto 24-26 mg tablet 1 tab PO BID Referrals: Satya Harrington MD [Primary Care Provider] - Stand Alone Forms: Patient Portal/API/Survey
[2024-08-07] MEDS: methocarbamoL 500 MG TABLET PO (14:54)
== END 2024-08-07 15:08 | disposition home or self-care (01) ==
PROVIDERS: Emergency Provider Emergency Medicine; PCP Family Medicine
DX: S46.811A Strain of other muscles, fascia and tendons at shoulder and upper arm level, right arm, initial encounter (principal); R07.9 Chest pain, unspecified; X58.XXXA Exposure to other specified factors, initial encounter
CPT/HCPCS: 71045; 80053; 82550; 83690; 83735; 83880; 84484; 85025; 85610; 85730; 93005; 99284

== ENCOUNTER → 2024-08-16 10:17 | Outpatient (ROUT) | payer MEDICARE, OTHER, SELFPAY ==
[2024-08-16 10:30] LABS: INR 2.1 (0.9-1.3); Prothrombin Time 22.9 SECONDS (9.4-12.5)
== END ==
PROVIDERS: PCP Family Medicine; Visit Provider Family Medicine
DX: I48.20 Chronic atrial fibrillation, unspecified (principal); Z79.01 Long term (current) use of anticoagulants
CPT/HCPCS: 85610

== ENCOUNTER → 2024-08-29 11:38 | Outpatient (ROUT) | payer MEDICARE, OTHER, SELFPAY ==
[2024-08-29 11:43] LABS: Add Manual Diff / Slide Review NO; Basophils Absolute Auto 0 /uL (0-100); Basophils Percent Auto 0.3 % (0-2); Eosinophils Absolute Auto 100 /uL (0-450); Eosinophils Percent Auto 1.5 % (2-4); Hematocrit 47.2 % (41-53); Hemoglobin 16.1 g/dL (13.5-17.5); Lymphocytes Absolute Auto 800 /uL (1100-4500); Lymphocytes Percent Auto 10.7 % (25-40); Mean Corpuscular HGB Conc 34.1 % (30-36); Mean Corpuscular Hemoglobin 33.3 PG (26-34); Mean Corpuscular Volume 97.7 fL (80-100); Monocytes Absolute Auto 800 /uL (0-900); Monocytes Percent Auto 10.8 % (3-14); Neutrophils Absolute Auto 5500 /uL (1500-7000); Neutrophils Percent Auto 76.7 % (50-75); Platelet Count 159 X10^3/uL (150-400); Red Blood Cell Count 4.83 X10^6/uL (4.5-5.9); Red Cell Distribution Width 14.5 % (11.6-14.8); White Blood Cell Count 7.1 X10^3/uL (4.5-11.0)
[2024-08-29 11:55] LABS: Alanine Aminotransferase 24 IU/L (<50); Albumin Globulin Ratio 1.6 (1.0-2.8); Alkaline Phosphatase 50 U/L (38-126); Aspartate Aminotransferase 31 IU/L (17-59); BUN Creatinine Ratio 23.2 (6-22); Bilirubin Total 1.5 mg/dL (0.2-1.3); Blood Urea Nitrogen 26 mg/dL (9-20); Calcium 8.9 mg/dL (8.4-10.2); Carbon Dioxide 27 mmol/L (22-32); Chloride 101 mmol/L (98-107); Estimated Glomerular Filt Rate > 60 mL/min (>60); Globulin 2.5 g/dL (1.7-4.1); Glucose 157 mg/dL (70-99); HEMOLYSIS < 15 (0-50); Potassium 3.7 mmol/L (3.4-5.1); Sodium 138 mmol/L (137-145); Total Protein 6.5 g/dL (6.3-8.2)
== END ==
PROVIDERS: PCP Family Medicine; Visit Provider Family Medicine
DX: R04.2 Hemoptysis (principal)
CPT/HCPCS: 80053; 85025

== ENCOUNTER → 2024-08-30 13:41 | Outpatient (CLI) | payer MEDICARE, OTHER, SELFPAY ==
--- NOTE | 2024-08-30 13:44 | DI.CT.S_ITS ---
PROCEDURE: CT CHEST W CON INDICATIONS: HEMOPTYSIS TECHNIQUE: After the administration of intravenous contrast, 5 mm thick sections acquired from the pulmonary apices to the posterior costophrenic angles. 1 mm axial lung, 5 mm thick coronal and sagittal reformats and 7 mm axial MIP were acquired. For radiation dose reduction, the following was used: automated exposure control, adjustment of mA and/or kV according to patient size. COMPARISON: [facility], CT, CT CHEST WITH CONTRAST, 03/05/2022, 15:24. [facility], CR, XR CHEST 1V, 08/07/2024, 11:01. FINDINGS: Image quality: Diagnostic. Lower Neck: No enlarged lymph nodes. Thyroid: No thyroid nodules which require sonographic follow up, per consensus guidelines. Axillae: No enlarged lymph nodes. Chest Wall: Cardiac pacemaker is seen with pulse generator in the left chest. Bones: Unremarkable. Lungs and Pleura: Consolidative opacity is seen in the right middle lobe. Moderate centrilobular emphysema. No pneumothorax or pleural effusions. No consolidation or suspicious nodules. Heart: Heart size is mildly enlarged. No pericardial effusion. Three-vessel coronary artery calcifications. Thoracic Vessels: The aorta and pulmonary arteries demonstrate normal size. Mediastinum and Keeley: No enlarged lymph nodes. Esophagus: No wall thickening. No hiatal hernia. Upper Abdomen: Right renal cyst is partially imaged. Stable mild nodular thickening of the left adrenal. Visualized upper abdomen solid organs and bowel loops appear normal. IMPRESSION: 1. Right middle lobe consolidation is suspicious for pneumonia. Recommend radiographic follow-up to completion to exclude an underlying mass. 2. Moderate centrilobular emphysema. 3. Cardiomegaly. Moderate to severe coronary artery calcifications. Approved by: Murray Alvarenga M.D. on 08/31/2024 at 12:51
== END ==
PROVIDERS: PCP Family Medicine; Referring Provider Family Medicine; Visit Provider Family Medicine
DX: R04.2 Hemoptysis (principal); R91.8 Other nonspecific abnormal finding of lung field; J43.2 Centrilobular emphysema; I51.7 Cardiomegaly; I25.10 Atherosclerotic heart disease of native coronary artery without angina pectoris; N28.1 Cyst of kidney, acquired; Z95.0 Presence of cardiac pacemaker
CPT/HCPCS: 71260; Q9967

== ENCOUNTER → 2024-09-06 09:53 | Outpatient (ROUT) | payer MEDICARE, OTHER, SELFPAY ==
[2024-09-06 10:10] LABS: INR 1.8 (0.9-1.3); Prothrombin Time 19.6 SECONDS (9.4-12.5)
== END ==
LOC: LAB 09:56
PROVIDERS: PCP Family Medicine; Visit Provider Family Medicine
DX: I48.20 Chronic atrial fibrillation, unspecified (principal); Z79.01 Long term (current) use of anticoagulants
CPT/HCPCS: 85610

== ENCOUNTER → 2024-09-18 12:16 | Outpatient (ROUT) | payer MEDICARE, OTHER, SELFPAY ==
[2024-09-18 12:32] LABS: INR 1.9 (0.9-1.3); Prothrombin Time 20.8 SECONDS (9.4-12.5)
== END ==
PROVIDERS: PCP Family Medicine; Visit Provider Family Medicine
DX: I48.20 Chronic atrial fibrillation, unspecified (principal); Z79.01 Long term (current) use of anticoagulants
CPT/HCPCS: 85610

== ENCOUNTER → 2024-11-23 11:37 | Outpatient (ROUT) | payer MEDICARE, OTHER, SELFPAY ==
[2024-11-23 11:53] LABS: INR 4.2 (0.9-1.3); Prothrombin Time 45.4 SECONDS (9.4-12.5)
== END ==
PROVIDERS: PCP Family Medicine; Visit Provider Family Medicine
DX: R23.3 Spontaneous ecchymoses (principal)
CPT/HCPCS: 85610

== ENCOUNTER → 2025-01-07 11:41 | Outpatient (ROUT) | payer MEDICARE, OTHER, SELFPAY ==
[2025-01-07 11:55] LABS: INR 2.2 (0.9-1.3); Prothrombin Time 24.5 SECONDS (9.4-12.5)
== END ==
PROVIDERS: PCP Family Medicine; Visit Provider Family Medicine
DX: R23.3 Spontaneous ecchymoses (principal)
CPT/HCPCS: 85610

== ENCOUNTER → 2025-01-15 09:23 | Outpatient (CLI) | payer MEDICARE, OTHER, SELFPAY ==
[2025-01-15 11:26] LABS: Blood Urea Nitrogen 33 mg/dL (9-20); Calcium 8.8 mg/dL (8.4-10.2); Carbon Dioxide 28 mmol/L (22-32); Chloride 99 mmol/L (98-107); Estimated Glomerular Filt Rate > 60 mL/min (>60); Glucose 83 mg/dL (70-99); HEMOLYSIS < 15 (0-50); Potassium 4.7 mmol/L (3.4-5.1); Sodium 137 mmol/L (137-145)
[2025-01-15 11:32] LABS: NT-proBNP (BNP-Adult 18+) 2090 pg/mL (<450)
== END ==
PROVIDERS: PCP Family Medicine; Referring Provider Family Medicine; Visit Provider Internal Medicine Interventional Cardiology
DX: I50.32 Chronic diastolic (congestive) heart failure (principal); I07.1 Rheumatic tricuspid insufficiency
CPT/HCPCS: 36415; 80048; 83880

== ENCOUNTER → 2025-01-22 17:09 | Outpatient (CLI) | payer MEDICARE, OTHER, SELFPAY ==
--- NOTE | 2025-01-22 17:13 | DI.RAD.S_ITS ---
PROCEDURE: XR CHEST 2V INDICATIONS: acute cough TECHNIQUE: 2 views of the chest were acquired. COMPARISON: [facility], CR, XR CHEST 1V, 08/07/2024, 11:01. [facility], CR, XR CHEST 2V, 03/07/2024, 15:59. [facility], CR, XR CHEST 2V, 12/28/2022, 11:41. FINDINGS: Surgical changes and devices: Cardiac pacemaker is seen with pulse generator in the left chest. Mitral valve clips are present Lungs and pleura: Diffuse interstitial prominence. No focal consolidation. No pleural effusions or pneumothorax. Mediastinum: Mediastinal contours are normal. Heart size is normal. Bones and chest wall: No suspicious bony abnormalities. Soft tissues appear unremarkable. IMPRESSION: Bilateral interstitial prominence may be chronic versus secondary to an atypical or viral pneumonia or mild edema. No focal consolidation. Cardiomegaly. Approved by: Murray Alvarenga M.D. on 01/23/2025 at 11:16
== END ==
PROVIDERS: PCP Family Medicine; Referring Provider Family Medicine; Visit Provider Family Medicine
DX: R05.1 Acute cough (principal); I51.7 Cardiomegaly
CPT/HCPCS: 71046

== ENCOUNTER → 2025-02-05 11:27 | Outpatient (ROUT) | payer MEDICARE, OTHER, SELFPAY ==
[2025-02-05 11:40] LABS: INR 3.9 (0.9-1.3); Prothrombin Time 42.8 SECONDS (9.4-12.5)
== END ==
PROVIDERS: PCP Family Medicine; Visit Provider Family Medicine
DX: R23.3 Spontaneous ecchymoses (principal)
CPT/HCPCS: 85610

== ENCOUNTER → 2025-02-20 12:41 | Outpatient (ROUT) | payer MEDICARE, OTHER, SELFPAY ==
[2025-02-20 12:47] LABS: INR 2.7 (0.9-1.3); Prothrombin Time 29.7 SECONDS (9.4-12.5)
== END ==
PROVIDERS: PCP Family Medicine; Visit Provider Family Medicine
DX: R23.3 Spontaneous ecchymoses (principal)
CPT/HCPCS: 85610

== ENCOUNTER → 2025-02-26 11:15 | Outpatient (ROUT) | payer MEDICARE, OTHER, SELFPAY ==
[2025-02-26 11:31] LABS: INR 1.3 (0.9-1.3); Prothrombin Time 14.4 SECONDS (9.4-12.5)
== END ==
PROVIDERS: PCP Family Medicine; Visit Provider Family Medicine
DX: R23.3 Spontaneous ecchymoses (principal)
CPT/HCPCS: 85610